=== PATIENT | female | born 1975 | race Caucasian/White ===

== ENCOUNTER → 2020-05-10 | Outpatient (CLI) | payer OTHER ==
[2020-05-10 08:19] LABS: Basophils # (A) 0.1 k/uL (0-0.2); Basophils % (A) 1 %; Eosinophils # (A) 0.1 k/uL (0-0.7); Eosinophils % (A) 2 %; HCT 43.2 % (34.0-46.0); HGB 14.1 gm/dL (11.4-16.0); Lymphocytes # (A) 1.4 k/uL (1.0-4.8); Lymphocytes % (A) 18 %; MCH 29.1 pg (25.0-35.0); MCHC 32.7 g/dL (31.0-37.0); MCV 89.1 fL (80.0-100.0); Mean Platelet Volume 7.1; Monocytes # (A) 0.5 k/uL (0-1.0); Monocytes % (A) 6 %; Neutrophils # (A) 5.8 k/uL (1.3-7.7); Neutrophils % (A) 73 %; Platelet Count 274 k/uL (150-450); RBC 4.85 m/uL (3.80-5.40); RDW 12.7 % (11.5-15.5); WBC 7.9 k/uL (3.8-10.6)
== END | disposition home or self-care (01) ==
LOC: LABPAT 07:32
PROVIDERS: ATTEND Obstetrics & Gynecology Obstetrics
DX: Z01.818 Encounter for other preprocedural examination (principal); N92.0 Excessive and frequent menstruation with regular cycle
CPT/HCPCS: 36415; 85025

== ENCOUNTER 2020-05-13 08:29 | Day surgery (SDC) | payer OTHER ==
--- NOTE | 2020-05-09 14:41 | HP ---
HISTORY AND PHYSICAL DATE OF SURGERY: 05/13/2020 HISTORY OF PRESENT ILLNESS: This is a 44-year-old 3, para 2-0-1-2 with complaints of irregular menstrual cycle. She states her menses typically are every 28-30 days with a heavy flow. She states for the last month she has been bleeding irregularly in nature. Patient is sexually active but not currently in contraception. Patient did undergo an endometrial biopsy, which was normal in nature. The patient states she would like to proceed with endometrial ablation given she is a current smoker and has noted headaches that have increase in nature. The patient has had extended bleeding pattern since the end of summer in February. PAST MEDICAL HISTORY: Significant for asthma and a kidney infection. PAST SURGICAL HISTORY: Significant for a cholecystectomy and hernia repair. Se is on Aygestin 5 mg. ALLERGIES: She is allergic to BACTRIM and ERYTHROMYCIN. FAMILY HISTORY: Noncontributory to this problem. 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 The patient has noted an extended bleeding pattern since February and is considering endometrial ablation. SOCIAL HISTORY: She is a current half pack per day smoker. 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 She notes minimal alcohol use, but denies drug use. REVIEW OF SYSTEMS: She denies fatigue, fever, chills. She denies diarrhea, constipation, or abdominal pain. She does note irregular menses and menorrhagia. She denies urinary urgency, dysuria, or incontinence. PHYSICAL EXAM: Vital signs are essentially stable. In general, is a well-nourished, well-developed, non female in no acute distress, breathing is noted to be nonlabored, heart has a regular rate and rhythm. Abdomen is soft and nontender, on genitourinary exam, external genitalia is noted to be normal for age. Vaginal mucosa is noted to be pink and well rugated. The cervix seems to be nontender without lesions. Uterus to be mobile. No adnexal masses are appreciated. ASSESSMENT: Irregular menses and menorrhagia. Information is reviewed with the patient regarding endometrial ablation for which she would like to proceed. PLAN: Hysteroscopy, dilation and curettage with endometrial ablation, NovaSure. Surgery is reviewed and all questions were answered. Risks are reviewed with the patient including uterine perforation, hematometra or failure of the procedure, the patient states understanding of these risks and wishes to proceed. MMODL / IJN: [id number] /
[~2020-05-13 08:29] MED LIST: Pre Op ABX Message 1 EACH MISC MISCELLANE ONE
[2020-05-13] MEDS ORDERED: ONDANSETRON 4 MG/2 ML VIAL ONE (08:59)
[2020-05-13] MEDS ORDERED: ONDANSETRON 4 MG/2 ML VIAL IVP ONE (09:22)
[2020-05-13] MEDS ORDERED: DEXAMETHASONE SOD PHOSPHATE 4 MG/ML 1 ML VIAL IV ONE (09:22)
[2020-05-13] MEDS ORDERED: HYDROmorphone 0.5 MG/0.5 ML SYRINGE IVP PRN (09:22)
[2020-05-13] MEDS ORDERED: SCOPOLAMINE 1.5MG/72HR PATCH TRANSDERM ONE (09:22)
[2020-05-13] MEDS ORDERED: LACTATED RINGERS 1,000 ML IV SCH (09:22)
[2020-05-13] MEDS ORDERED: LIDOCAINE 1% (10MG/ML) FOR IV START INTRADERMA PRN (09:22)
[2020-05-13] MEDS ORDERED: MIDAZOLAM 2 MG/2 ML VIAL ONE (09:58)
[2020-05-13] MEDS ORDERED: LIDOCAINE 1% INJ 10MG/ML (20 ML MDV) ONE (09:58)
[2020-05-13] MEDS ORDERED: fentaNYL (PF) 50 MCG/ML 2 ML AMP ONE (09:58)
[2020-05-13] MEDS ORDERED: PROPOFOL 10 MG/ML 20 ML VIAL IV ONE (09:58)
[2020-05-13] MEDS ORDERED: KETOROLAC 15 MG/ML 1 ML VIAL ONE (09:58)
--- NOTE | 2020-05-13 10:19 | P.OP ---
Date of Procedure: 05/13/20 Preoperative Diagnosis: Menorrhagia Postoperative Diagnosis: Same Procedure(s) Performed: Hysteroscopy, dilation and curettage, endometrial ablation with NovaSure Anesthesia: MAC Surgeon: Verenice Orellana Estimated Blood Loss (ml): 5 IV fluids (ml): 600 Urine output (ml): 50 Pathology: other (Endometrial curettings) Condition: stable Disposition: PACU Indications for Procedure: Heavy menstrual bleeding Operative Findings: Delivered of endometrial cavity Description of Procedure: Patient was seen in the preoperative area procedure was reviewed and all questions are answered. Patient agreed and was taken back to the operating suite. General anesthesia was then obtained without difficulty by the anesthesia department. She was then prepped and draped in the normal sterile fashion in the dorsal lithotomy position. A red rubber catheter was then used to drain the bladder of clear yellow urine. A weighted speculum was placed in the posterior vaginal vault the anterior lip of the cervix was visualized and grasped with a single-tooth tenaculum. The endocervical canal was then dilated to 15-Mauritian. Hysteroscope was then placed through the cervix and toward the and Perri cavity with the above-noted findings. Hysteroscope was removed after pictures were taken. A sharp curettage was then performed and this specimen was then sent to pathology for analysis. The NovaSure device was then opened and set to the appropriate measurements a length of 4 with a 4.2 a power of 92 total cycle length of 2 minutes. Cycle was allowed to occur after the cavity assessment was passed. After the cycle was complete the device was removed without difficulty. The single-tooth tenaculum was taken off of the anterior lip of the cervix hemostasis was appreciated. All instrument were then removed from the patient's vaginal vault. All counts were noted to be correct 2. Patient was taken the recovery room awake in stable condition.
[2020-05-13 10:32] VITALS: TEMP 97.2
[2020-05-13 10:51] VITALS: RESP 16
[2020-05-13] MEDS ORDERED: LACTATED RINGERS 1,000 ML IV ONE (11:00)
[2020-05-13 11:28] VITALS: BP 138/90; PULSE 51
== END 2020-05-13 11:44 | disposition home or self-care (01) ==
LOC: OR 08:29
PROVIDERS: ATTEND Obstetrics & Gynecology Obstetrics
DX: N92.1 Excessive and frequent menstruation with irregular cycle (principal); N85.8 Other specified noninflammatory disorders of uterus; J45.909 Unspecified asthma, uncomplicated; Z90.49 Acquired absence of other specified parts of digestive tract; Z98.890 Other specified postprocedural states; Z79.899 Other long term (current) drug therapy; Z88.2 Allergy status to sulfonamides; Z88.1 Allergy status to other antibiotic agents; F17.210 Nicotine dependence, cigarettes, uncomplicated
CPT/HCPCS: 81025; 88305; 58563; J2250; J1100; J2405; J2001; J3010; J1885; J2704

== ENCOUNTER → 2022-12-17 | Outpatient (CLI) | payer OTHER ==
[2022-12-17 15:55] LABS: ALT 22 U/L (8-44); AST 22 U/L (13-35); Albumin 4.7 d/dL (3.8-4.9); Albumin/Globulin Ratio 2.24 Ratio (1.60-3.17); Alkaline Phosphatase 67 U/L (41-126); BUN/Creat Ratio 15.11 Ratio (12.00-20.00); Blood Urea Nitrogen 13.6 mg/dL (9.0-27.0); Calcium 9.7 mg/dL (8.7-10.3); Carbon Dioxide 21.2 mmol/L (21.6-31.8); Chloride 106 mmol/L (96-109); Globulin 2.1 d/dL (1.6-3.3); Glucose 91 mg/dL (70-110); Potassium 4.2 mmol/L (3.5-5.5); Sodium 139 mmol/L (135-145); Total Bilirubin 0.4 mg/dL (0.3-1.2); Total Protein 6.8 d/dL (6.2-8.2)
[2022-12-17 20:12] LABS: Basophils # (A) 0.03 X 10*3/uL (0.00-0.10); Basophils % (A) 0.4 %; Eosinophils % (A) 1.3 %; HCT 39.2 % (37.2-46.3); Lymphocytes # (A) 1.58 X 10*3/uL (0.90-5.00); Lymphocytes % (A) 20.8 %; MCH 32.1 pg (27.0-32.0); MCHC 35.7 d/dL (32.0-37.0); MCV 89.9 FL (80.0-97.0); Mean Platelet Volume 10.9 FL (9.5-12.2); Monocytes # (A) 0.41 X 10*3/uL (0.20-1.00); Monocytes % (A) 5.4 %; NRBC Per 100 WBC 0 X 10*3/uL (0.00-0.01); Neutrophils # (A) 5.44 X 10*3/uL (1.80-7.70); Neutrophils % (A) 71.8 %; Platelet Count 326 X 10*3/uL (140-440); RBC 4.36 X 10*6/uL (4.10-5.20); RDW 13.1 % (11.5-14.5); WBC 7.58 X 10*3/uL (4.50-10.00)
== END | disposition home or self-care (01) ==
LOC: LABWHC1 11:17
PROVIDERS: ATTEND Physician Assistant
DX: B35.9 Dermatophytosis, unspecified (principal)
CPT/HCPCS: 36415; 80053; 85025

== ENCOUNTER → 2023-10-13 | Outpatient (CLI) | payer OTHER ==
--- NOTE | 2023-10-13 08:48 | MM ---
Reason for Exam: Clinical finding. Indicated Problems: Lump or thickening of the left side for 4 Day(s). Patient History: Menarche at age 9. First Full-Term at age 20. Risk Values: Yashira 5 year model risk: 0.9%. NCI Lifetime model risk: 8.9%. Tissue Density: The breasts are heterogeneously dense, which may obscure small masses. Findings: Analyzed By CAD. The pattern is symmetrical. There are calcifications which may be vascular in nature in the posterior lateral breast. This is posterior to the palpable region. Please see ultrasound report. Consideration for calcification biopsy can be performed based on the ultrasound biopsy results. At the area marked by the palpable abnormality no discrete mammographic abnormality is evident. No suspicious groups of microcalcifications, spiculated or lobular masses, architectural distortion or other secondary signs of malignancy are mammographically apparent. Overall Assessment: Incomplete: need additional imaging evaluation, BI-RAD 0 Management: Diagnostic Breast Ultrasound of the left breast. A negative mammogram report should not preclude additional follow up of suspicious palpable abnormalities. Patient should continue monthly self breast exam. A clinical breast exam by your physician is recommended on an annual basis and results should be correlated with mammographic findings. Electronically signed and approved by: Andrew Grullon D.O. Radiologis
--- NOTE | 2023-10-13 08:49 | USB ---
Patient History: Menarche at age 9. First Full-Term at age 20. Risk Values: Yashira 5 year model risk: 0.9%. NCI Lifetime model risk: 8.9%. Technique: Method: Targeted. Doppler: Color. Patient Position: Supine. Findings: The area of palpable concern of the left breast, the axilla of the left breast and the retroareolar of the left breast were scanned. At the area of concern there is a vague hypoechoic area which is irregular and appears taller than wide. This area is persistent and is estimated to measure 1.2 x 1.0 cm. Ultrasound-guided core biopsy is recommended. Following the ultrasound-guided biopsy, correlation with mammogram is recommended. If biopsy marker is away from the calcifications, evaluation of the calcifications for potential biopsy would be recommended. Overall Assessment: Suspicious, BI-RAD 4 Management: Ultrasound Core Biopsy of the left breast. A clinical breast exam by your physician is recommended on an annual basis and results should be correlated with mammographic findings. This exam should not preclude additional follow-up of suspicious palpable abnormalities. Results were given to the patient verbally at the time of exam. Electronically signed and approved by: Andrew Grullon D.O. Radiologis
[2023-10-13 15:42] LABS: Rheumatoid Factor, Qnt <15 IU/mL (0-15)
== END | disposition home or self-care (01) ==
LOC: RADMAMWWP 07:27
PROVIDERS: ATTEND Family Medicine
DX: R92.333 Mammographic heterogeneous density, bilateral breasts (principal); R53.83 Other fatigue; Z13.1 Encounter for screening for diabetes mellitus; Z13.220 Encounter for screening for lipoid disorders; N63.20 Unspecified lump in the left breast, unspecified quadrant; M25.50 Pain in unspecified joint
CPT/HCPCS: 36415; 77062; 77066; 85652; 86038; 86140; 86431

== ENCOUNTER → 2023-10-18 | Day surgery (SDC) | payer OTHER ==
--- NOTE | 2023-10-22 11:32 | MM ---
Reason for Exam: Post Procedure Mammogram. Patient History: Menarche at age 9. First Full-Term at age 20. Risk Values: Yashira 5 year model risk: 0.9%. NCI Lifetime model risk: 8.9%. Prior Study Comparison: 10/13/2023 Bilateral MG 3D diag mammo w/cad [facility], [facility]. Tissue Density: Left: The breasts are heterogeneously dense, which may obscure small masses. Pathology Description: Location: 5 o'clock, lower outer quadrant. Marker Left Behind. Needle Type: Celero Cores: 4 Gauge: 12 The procedure of ultrasound guided core biopsy was explained to the patient. Benefits, alternatives, and risks were discussed. An informed consent was then obtained. The patient was placed in supine positioning for imaging and for the procedure. The overlying skin was prepped and draped in usual sterile fashion. Lidocaine buffered with bicarbonate was used as anesthetic into the skin and subcutaneous tissue up to area of concern in the left 5:00 breast. Under ultrasound guidance, a 12-gauge vacuum assisted biopsy gun device was used to obtain 4 core samples. Following this, a biopsy clip was left in lesion. The patient tolerated the procedure well without any immediate complication. The patient was kept in the radiology department for short stay after the procedure and then discharged home in stable condition. Postprocedure mammogram: The patient was transferred to mammography for physician ordered post procedure mammogram for clip placement verification. Impression: Successful, uncomplicated ultrasound guided core biopsy of area of concern in the left 5:00 breast, full pathology results to follow. Pathology Results: Result: Malignant, Invasive ductal carcinoma. Pathology and radiology were reviewed. Findings are concordant. 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 See surgical pathology cancer case summary and comment. Overall Assessment: Malignant Assessment: MG diagnostic mammo LT wo CAD. - Left: Known biopsy proven malignancy, BI-RAD 6. Management: Surgical Consultation of the left breast. Electronically signed and approved by: Laureano Valencia M.D. Radiologis
== END ==
LOC: RADUSWWP 10:08
PROVIDERS: ATTEND Family Medicine
DX: D05.12 Intraductal carcinoma in situ of left breast (principal)
CPT/HCPCS: 88305; 88342; 88341; 77065; 19083; A4648

== ENCOUNTER → 2023-10-29 | Outpatient (CLI) | payer OTHER ==
--- NOTE | 2023-11-01 08:33 | BMR ---
EXAM DATE: 10/29/2023 EXAM DESCRIPTION: MRI-Breast Bilat (W/WO Contrast) INDICATION: Recently diagnosed left breast cancer, to evaluate extent of disease COMPARISON: Comparison was made to prior relevant imaging available in PACS TECHNIQUE: Multiplanar multisequence breast MRI was performed prior to and after administration of 9 mL of Gadavist intravenously. Post processing was performed utilizing a [employer] workstation. Breast MRI was performed at [facility] and was provided for review by [facility]. FINDINGS: There is moderate, symmetric background parenchymal enhancement in breasts that are composed of heterogeneous fibroglandular tissue. RIGHT BREAST: Review of the dynamic contrast enhanced series shows no rapidly enhancing masses, suspicious enhancement pattern or other abnormalities. The T2 weighted series show no abnormality. LEFT BREAST: Review of the dynamic contrast enhanced series demonstrates focal non mass enhancement at 5 o'clock position posterior depth of the breast compatible with biopsy-proven malignancy. Area of enhancement measures grossly 3.1 x 1.2 x 1.2 cm (AP x transverse x CC dimension) (series 504, image 263 and series 601, image 42). The signal void from biopsy clip is abutting the inner aspect of the enhancing malignancy (series 504, image 275). No additional sites of suspicious enhancement or other abnormality in the left breast. Nonenlarged however slightly prominent lymph node high in the left axilla with mild cortical fullness (series 504, image 671 and series 601, image 38). IMPRESSION: Right Breast: BI-RADS Category 1-negative. No MRI evidence of malignancy. Recommendation: MRI screening in 1 year Left Breast: BI-RADS Category 0-[id number] malignancy. A 2.7 x 1.1 x 1.2 cm focal non mass enhancement at 5 o'clock position posterior depth of the breast compatible with biopsy-proven malignancy with biopsy clip abutting the inner aspect of abnormality. Recommendation: Surgical and oncological consultation. Nonenlarged, however slightly prominent and asymmetric, lymph node with mild cortical fullness in the high left axilla, indeterminate. Recommendation: Further evaluation with targeted ultrasound if clinically relevant. OVERALL ASSESSMENT- BI-RADS 6 MTDD
== END | disposition home or self-care (01) ==
LOC: RADMRIMAIN 07:54
PROVIDERS: ATTEND Internal Medicine Hematology & Oncology
DX: C50.512 Malignant neoplasm of lower-outer quadrant of left female breast (principal)
CPT/HCPCS: 77049

== ENCOUNTER → 2023-11-02 | Outpatient (CLI) | payer OTHER ==
--- NOTE | 2023-11-04 09:35 | US ---
EXAMINATION TYPE: US pelvic complete DATE OF EXAM: 11/02/2023 COMPARISON: NONE CLINICAL INDICATION: Female, 47 years old with history of R19.4 CHANGE IN BOWEL HABIT; change in talha l habits. Pt states pain on the left side for years. Pt had hernia surgery 20+ years ago with zara hou TECHNIQUE: Transabdominal sonographic images of the pelvis were acquired. Date of LMP: Unknown. Pt had ablation around 4 years ago EXAM MEASUREMENTS: Uterus: 8.5 x 5.9 x 4.2 cm Endometrial Stripe: 0.59 cm Right Ovary: 3.8 x 2.3 x 2.2 cm Left Ovary: 3.2 x 2.4 x 1.5 cm 1. Uterus: Anteverted wnl 2. Endometrium: wnl 3. Right Ovary: wnl 4. Left Ovary: Follicle seen measuring 1cm 5. Bilateral Adnexa: Echogenic area with posterior shadowing seen in the left adnexa. Possibly repre senting the titanium mesh used for hernia surgery? 6. Posterior cul-de-sac: wnl IMPRESSION: No significant abnormality of the uterus or adnexa. No free fluid in the cul-de-sac.
== END | disposition home or self-care (01) ==
LOC: RADUSWWP 16:06
PROVIDERS: ATTEND Family Medicine
DX: R19.4 Change in bowel habit (principal); R10.9 Unspecified abdominal pain; Z98.890 Other specified postprocedural states
CPT/HCPCS: 76856

== ENCOUNTER → 2023-11-03 | Outpatient (CLI) | payer OTHER ==
[2023-11-03 10:39] LABS: Basophils # (A) 0.04 X 10*3/uL (0.00-0.10); Basophils % (A) 0.6 %; Eosinophils % (A) 1.6 %; HGB 14.2 g/dL (12.0-15.0); Lymphocytes # (A) 1.43 X 10*3/uL (0.90-5.00); Lymphocytes % (A) 22.2 %; MCH 31.1 pg (27.0-32.0); MCHC 34.6 g/dL (32.0-37.0); MCV 89.9 FL (80.0-97.0); Mean Platelet Volume 10.8 FL (9.5-12.2); Monocytes # (A) 0.38 X 10*3/uL (0.20-1.00); Monocytes % (A) 5.9 %; NRBC Per 100 WBC 0 X 10*3/uL (0.00-0.01); Neutrophils # (A) 4.46 X 10*3/uL (1.80-7.70); Neutrophils % (A) 69.4 %; Platelet Count 305 X 10*3/uL (140-440); RBC 4.56 X 10*6/uL (4.10-5.20); RDW 12.9 % (11.5-14.5); WBC 6.43 X 10*3/uL (4.50-10.00)
[2023-11-03 11:07] LABS: ALT 21 U/L (8-44); AST 17 U/L (13-35); Albumin 4.8 g/dL (3.8-4.9); Alkaline Phosphatase 57 U/L (41-126); Blood Urea Nitrogen 12.7 mg/dL (9.0-27.0); Calcium 9.5 mg/dL (8.7-10.3); Carbon Dioxide 24.6 mmol/L (21.6-31.8); Chloride 105 mmol/L (96-109); Glucose 100 mg/dL (70-110); LDL Cholesterol,Calculated 97.2 mg/dL (0.0-131.0); Potassium 4.3 mmol/L (3.5-5.5); Sodium 141 mmol/L (135-145); Total Bilirubin 0.3 mg/dL (0.3-1.2); Total Protein 6.8 g/dL (6.2-8.2)
== END | disposition home or self-care (01) ==
LOC: LABWHC1 06:55
PROVIDERS: ATTEND Family Medicine
DX: Z13.220 Encounter for screening for lipoid disorders (principal); Z13.1 Encounter for screening for diabetes mellitus; R53.83 Other fatigue
CPT/HCPCS: 36415; 80053; 80061; 83036; 84443; 85025

== ENCOUNTER → 2023-11-10 | Outpatient (CLI) | payer OTHER ==
--- NOTE | 2023-11-12 07:28 | USB ---
Reason for Exam: Follow-up at short interval from prior study. Patient History: Menarche at age 9. First Full-Term at age 20. Breast cancer, left, age 47. 10/18/2023, Malignant US biopsy breast VAD LT on the left side. Technique: Method: Targeted. Prior Study Comparison: 10/13/2023 Bilateral MG 3D diag mammo w/cad [facility], [facility]. 10/18/2023 Left MG diagnostic mammo LT wo CAD., [facility]. Findings: The axilla of the left breast was scanned. Technique utilized:US breast axilla LT Image; Ultrasound imaging of: All 4 quadrants, the retroareolar region and axilla. The visualized lymph node appears to be grossly similar to 10/13/2023. When comparing to MRI imaging for 10/29/2023, the lymph nodes in the right axilla are not that different than the contralateral side in morphology. Surgical consultation for management of lymph nodes mentioned on MRI imaging. No definitive suspicious lymph node identified on ultrasound imaging. Overall Assessment: Probably benign, BI-RAD 3 Management: Diagnostic Breast Ultrasound of the right breast in 3 months. A clinical breast exam by your physician is recommended on an annual basis and results should be correlated with mammographic findings. This exam should not preclude additional follow-up of suspicious palpable abnormalities. Results were given to the patient verbally at the time of exam. Electronically signed and approved by: Quinten Webb DO
== END | disposition home or self-care (01) ==
LOC: RADUSWWP 14:59
PROVIDERS: ATTEND Internal Medicine Hematology & Oncology
DX: C50.512 Malignant neoplasm of lower-outer quadrant of left female breast (principal); Z17.0 Estrogen receptor positive status [ER+]

== ENCOUNTER 2024-01-29 20:07 | Inpatient (IN) | payer OTHER ==
--- NOTE | 2024-01-29 20:48 | ED ---
General Adult HPI - General Chief complaint: Fever Stated complaint: post-chemo fever, rash Time Seen by Provider: 01/29/24 20:24 Source: patient, RN notes reviewed Mode of arrival: ambulatory Limitations: no limitations - History of Present Illness Initial comments: Patient is a 48-year-old female presenting to the emergency department with concern for fever. Patient is on chemotherapy, last 10 days ago for breast cancer. Patient experienced some sort of bug bite to her left leg 3 to 4 days ago. Patient is having redness that has expanded however not as deeply red. Patient noticed fever today. Patient does have discomfort that is increasing of her left calf where the rash is - Related Data Home Medications Medication Instructions Recorded Confirmed Loratadine [Claritin] 1 tab PO DIRECTED 12/08/23 01/19/24 Ondansetron [Zofran] 1 tab PO QID PRN 12/08/23 01/19/24 dexAMETHasone [Decadron] 8 mg PO BID 12/08/23 01/19/24 Allergies Allergy/AdvReac Type Severity Reaction Status Date / Time azithromycin [From Zithromax] Allergy Rash/Hives Verified 01/29/24 20:26 sulfamethoxazole Allergy Rash/Hives Verified 01/29/24 20:26 [From Bactrim] trimethoprim [From Bactrim] Allergy Rash/Hives Verified 01/29/24 20:26 PINE Allergy Unknown Uncoded 01/29/24 20:26 Review of Systems ROS Statement: Those systems with pertinent positive or pertinent negative responses have been documented in the HPI. ROS Other: All systems not noted in ROS Statement are negative. Constitutional: Reports: fever Eyes: Denies: eye pain ENT: Denies: ear pain Respiratory: Denies: cough Cardiovascular: Denies: chest pain Endocrine: Denies: fatigue Gastrointestinal: Denies: abdominal pain Skin: Reports: rash Past Medical History Past Medical History: No Reported History Additional Past Medical History / Comment(s): breast cx History of Any Multi-Drug Resistant Organisms: None Reported Past Surgical History: Cholecystectomy, Hernia Repair Additional Past Surgical History / Comment(s): back Skin biopsy, benign Past Anesthesia/Blood Transfusion Reactions: No Reported Reaction Past Psychological History: No Psychological Hx Reported Smoking Status: Former smoker, Vaper Past Alcohol Use History: Rare Past Drug Use History: None Reported - Past Family History Mother Family Medical History: Congestive Heart Failure (CHF), COPD Additional Family Medical History / Comment(s): ARTHRITIS Father Family Medical History: Cancer, Hypertension Additional Family Medical History / Comment(s): PROSTATE General Exam Limitations: no limitations General appearance: alert, in no apparent distress Head exam: Present: normocephalic Eye exam: Present: normal appearance Neck exam: Present: normal inspection Respiratory exam: Present: normal lung sounds bilaterally Cardiovascular Exam: Present: tachycardia GI/Abdominal exam: Present: soft. Absent: tenderness Extremities exam: Present: other (Erythema left calf) Neurological exam: Present: alert Psychiatric exam: Present: normal affect, normal mood Skin exam: Present: rash (Left calf with approximately 8 cm circular bull's-eye type rash with several small punctures in the middle) Course Vital Signs 01/29/24 20:19 Temperature 100.2 F H Pulse Rate 109 H Respiratory 20 Rate Blood Pressure 118/82 O2 Sat by Pulse 98 Oximetry Medical Decision Making - Medical Decision Making Was pt. sent in by a medical professional or institution (, PA, COMPUTER OPERATIONS MANAGER, urgent care, hospital, or jail...) When possible be specific @ -No Did you speak to anyone other than the patient for history (EMS, parent, family, police, friend...)? What history was obtained from this source @ -No Did you review nursing and triage notes (agree or disagree)? Why? @ -I reviewed and agree with nursing and triage notes Were old charts reviewed (outside hosp., previous admission, EMS record, old EKG, old radiological studies, urgent care reports/EKG's, jail records)? Report findings @ -No old charts were reviewed Differential Diagnosis (chest pain, altered mental status, abdominal pain women, abdominal pain men, vaginal bleeding, weakness, fever, dyspnea, syncope, headache, dizziness, GI bleed, back pain, seizure, CVA, palpatations, mental health, musculoskeletal)? @ -Differential Fever: Pneumonia, viral URI, endocarditis, myocarditis, pericarditis, otitis, sinusitis, peritonsillar Abscess, retropharyngeal Abscess, epiglottitis, peritonitis, appendicitis, Maria M cystitis, diverticulitis, hepatitis, colitis, UTI, PID, TOA, pyelonephritis, prostatitis, epididymitis, meningitis, encephalitis, pulmonary embolism, CVA, thyroid storm, pancreatitis, adrenal crisis, cavernous sinus thrombosis, this is not meant to be an all-inclusive list. EKG interpreted by me (3pts min.). @ -As above X-rays interpreted by me (1pt min.). @ -None done CT interpreted by me (1pt min.). @ -None done U/S interpreted by me (1pt. min.). @ -None done What testing was considered but not performed or refused? (CT, X-rays, U/S, labs)? Why? @ -None What meds were considered but not given or refused? Why? @ -None Did you discuss the management of the patient with other professionals (professionals i.e. DrLily, PA, COMPUTER OPERATIONS MANAGER, lab, RT, psych nurse, social media editor, crib tender, teacher, correction officer, onsite case manager)? Give summary @ -Case discussed with Dr. Watt will consult for oncology. Case also discussed with Dr. Jacobo who will admit covering Dr. Adams. Was smoking cessation discussed for >3mins.? @ -No Was critical care preformed (if so, how long)? @ -32 minutes critical care time Were there social determinants of health that impacted care today? How? (Homelessness, low income, unemployed, alcoholism, drug addiction, transportation, low edu. Level, literacy, decrease access to med. care, senior living, rehab)? @ -No Was there de-escalation of care discussed even if they declined (Discuss DNR or withdrawal of care, Hospice)? DNR status @ -No What co-morbidities impacted this encounter? (DM, HTN, Smoking, COPD, CAD, Cancer, CVA, ARF, Chemo, Hep., AIDS, mental health diagnosis, sleep apnea, morbid obesity)? @ -Breast cancer on chemotherapy Was patient admitted / discharged? Hospital course, mention meds given and route, prescriptions, significant lab abnormalities, going to OR and other pertinent info. @ -Patient presents with cellulitis of the left leg and fever. Elevation of white blood cell count and patient on chemotherapy. Patient will be admitted for IV antibiotics. Admission orders written. There is concern for sepsis diagnosed at 2300. Blood culture lactic acid and IV antibiotics have all been ordered. Undiagnosed new problem with uncertain prognosis? @ -No Drug Therapy requiring intensive monitoring for toxicity (Heparin, Nitro, Insulin, Cardizem)? @ -No Were any procedures done? @ -No Diagnosis/symptom? @ -Cellulitis, sepsis Acute, or Chronic, or Acute on Chronic? @ -Acute, acute Uncomplicated (without systemic symptoms) or Complicated (systemic symptoms)? @ -Complicated with underlying history of breast cancer and on chemotherapy Side effects of treatment? @ -No Exacerbation, Progression, or Severe Exacerbation? @ -No Poses a threat to life or bodily function? How? (Chest pain, [place], [place], pneumonia, PE, COPD, DKA, ARF, appy, cholecystitis, CVA, Diverticulitis, Homicidal, Suicidal, threat to staff... and all critical care pts) @ -No - Lab Data Result diagrams: 01/29/24 21:48 01/29/24 21:48 Lab Results 01/29/24 01/29/24 01/29/24 Range/Units 21:48 21:48 21:48 WBC 24.3 H (3.8-10.6) k/uL RBC 3.87 (3.80-5.40) m/uL Hgb 11.3 L (11.4-16.0) gm/dL Hct 33.8 L (34.0-46.0) % MCV 87.3 (80.0-100.0) fL MCH 29.3 (25.0-35.0) pg MCHC 33.5 (31.0-37.0) g/dL RDW 15.5 (11.5-15.5) % Plt Count 243 (150-450) k/uL MPV 7.5 Sodium 136 L (137-145) mmol/L Potassium 3.7 (3.5-5.1) mmol/L Chloride 109 H (98-107) mmol/L Carbon Dioxide 21 L (22-30) mmol/L Anion Gap 6 mmol/L BUN 11 (7-17) mg/dL Creatinine 0.97 (0.52-1.04) mg/dL Est GFR (CKD-EPI)AfAm 79 (>60 ml/min/1.73 sqM) Est GFR (CKD-EPI)NonAf 69 (>60 ml/min/1.73 sqM) Glucose 116 H (74-99) mg/dL Plasma Lactic Acid Gage 1.1 (0.7-2.0) mmol/L Calcium 8.9 (8.4-10.2) mg/dL Total Bilirubin 0.5 (0.2-1.3) mg/dL AST 31 (14-36) U/L ALT 32 (4-34) U/L Alkaline Phosphatase 107 (38-126) U/L Total Protein 5.8 L (6.3-8.2) g/dL Albumin 3.9 (3.5-5.0) g/dL Critical Care Time Critical Care Time: Yes Total Critical Care Time: 32 Disposition Clinical Impression: Cellulitis, Sepsis Disposition: ADMITTED IP TO THIS [facility] Condition: Serious Is patient prescribed a controlled substance at d/c from ED?: No Referrals: Ted Adams MD [Primary Care Provider] - 1-2 days Time of Disposition: 23:11
[2024-01-29 21:58] LABS: HCT 33.8 % (34.0-46.0); HGB 11.3 gm/dL (11.4-16.0); MCH 29.3 pg (25.0-35.0); MCHC 33.5 g/dL (31.0-37.0); MCV 87.3 fL (80.0-100.0); Mean Platelet Volume 7.5; Platelet Count 243 k/uL (150-450); RBC 3.87 m/uL (3.80-5.40); RDW 15.5 % (11.5-15.5)
[2024-01-29 22:09] LABS: ALT 32 U/L (4-34); AST 31 U/L (14-36); African American GFR (CKD) 79 (>60 ml/min/1.73 sqM); Albumin 3.9 g/dL (3.5-5.0); Alkaline Phosphatase 107 U/L (38-126); Anion Gap 6 mmol/L; Blood Urea Nitrogen 11 mg/dL (7-17); Calcium 8.9 mg/dL (8.4-10.2); Carbon Dioxide 21 mmol/L (22-30); Chloride 109 mmol/L (98-107); Glucose 116 mg/dL (74-99); Non-African American GFR(CKD) 69 (>60 ml/min/1.73 sqM); Potassium 3.7 mmol/L (3.5-5.1); Sodium 136 mmol/L (137-145); Total Bilirubin 0.5 mg/dL (0.2-1.3); Total Protein 5.8 g/dL (6.3-8.2)
[2024-01-29] MEDS ORDERED: NALOXONE 0.4 MG/ML 1 ML VIAL IV PRN (23:11)
[2024-01-29 23:50] LABS: Anisocytosis (M) Present; Band Neutrophils % 10 %; Lymphocytes # (M) 0.95 k/uL (1.0-4.8); Metamyelocytes # (M) 0.24 k/uL (0); Metamyelocytes % 1 %; Monocytes # (M) 0.71 k/uL (0-1.0); Neutrophils % (M) 83 %; Nucleated Red Blood Cells 2 /100 WBC (0-0); Total Cells Counted 200; WBC 23.8 k/uL (3.8-10.6)
[2024-01-29 23:51] LABS: Polychromasia Present
[2024-01-30] MEDS: SODIUM CHLORIDE 0.9% 1,000 ML IV SCH ×2 (00:14→00:15)
[2024-01-30] MEDS: LEVOFLOXACIN 750MG-D5W PMX 750 MG in DEXTROSE/WATER 1 150ML.BAG IVPB SCH (00:14)
[2024-01-30] MEDS: ACETAMINOPHEN TAB 500 MG TAB PO STA (00:24)
[2024-01-30] MEDS ORDERED: VANCOMYCIN IV PER PHARMACY 1 EACH MISC MISCELLANE PRN (00:41)
--- NOTE | 2024-01-30 00:43 | P.HPIM ---
History of Present Illness H&P Date: 01/30/24 Chief Complaint: fever 48-year-old female with recent diagnosis of breast cancer currently on chemotherapy last round was received about 10 days ago Patient coming in due to a fever she reports that she felt an insect bite couple days ago and her left leg she did not see the insect bite she felt that she killed it immediately by hitting the bug over the pants that she was wearing when she saw the crustacean. She noticed that she started having some central erythema with peripheral clearing. Today she noticed some swelling associated with that and induration denies any bleeding denies any open wounds. She also started having a fever today for which she decided to come in for evaluation Denies any nausea or vomiting denies any abdominal pain denies any cough or upper respiratory infection symptoms. Denies any GI bleeding. She does admit to 2 episodes of diarrhea. She denies any recent travel or hospital stay denies any recent hiking in the [place] or camping. She denies seeing any ticks. Denies any joint pain denies any changes in her urinary habits. Denies any vision changes. Patient was recently diagnosed with breast cancer the lump was first noted around September of this year she has been on chemotherapy she has received 3 rounds so far no surgery has been done yet. review of systems Pertinent positives as noted in HPI. All other systems were reviewed and are negative on exam Constitutional: No acute distress, conversant, pleasant Eyes: Anicteric sclerae, moist conjunctiva, Pupils equal round reactive to light Lungs: Clear to auscultation Clear to percussion Normal respiratory effort, no accessory muscle use Cardiovascular: Heart regular in rate and rhythm, No murmurs, gallops, or rubs No peripheral edema Abdominal: Soft Nontender, no guarding, rebound or rigidity Abdomen moving with respiration Normoactive bowel sounds Skin: There is erythema over the proximal ventral aspect of the left calf with peripheral clearing and then arrange of her erythema resulting in a target looking erythema. No tenderness to palpation slightly warm to the touch no open wounds no drainage Extremities: No digital cyanosis No clubbing Pedal pulses intact and symmetrical Radial pulses intact and symmetrical No calf tenderness Psychiatric: Alert and oriented to person, place and time Appropriate affect fair judgement Neuro Muscles Strength 5/5 in all 4 extremities Sensation to light touch grossly present throughout Cranial nerves II-XII grossly intact Past Medical History Past Medical History: No Reported History Additional Past Medical History / Comment(s): breast cx History of Any Multi-Drug Resistant Organisms: None Reported Past Surgical History: Cholecystectomy, Hernia Repair Additional Past Surgical History / Comment(s): back Skin biopsy, benign Past Anesthesia/Blood Transfusion Reactions: No Reported Reaction Past Psychological History: No Psychological Hx Reported Smoking Status: Former smoker, Vaper Past Alcohol Use History: Rare Past Drug Use History: None Reported - Past Family History Mother Family Medical History: Congestive Heart Failure (CHF), COPD Additional Family Medical History / Comment(s): ARTHRITIS Father Family Medical History: Cancer, Hypertension Additional Family Medical History / Comment(s): PROSTATE Medications and Allergies Home Medications Medication Instructions Recorded Confirmed Type Loratadine [Claritin] 1 tab PO DIRECTED 12/08/23 01/19/24 History Ondansetron [Zofran] 1 tab PO QID PRN 12/08/23 01/19/24 History dexAMETHasone [Decadron] 8 mg PO BID 12/08/23 01/19/24 History Allergies Allergy/AdvReac Type Severity Reaction Status Date / Time azithromycin [From Zithromax] Allergy Rash/Hives Verified 01/29/24 20:26 sulfamethoxazole Allergy Rash/Hives Verified 01/29/24 20:26 [From Bactrim] trimethoprim [From Bactrim] Allergy Rash/Hives Verified 01/29/24 20:26 PINE Allergy Unknown Uncoded 01/29/24 20:26 Physical Exam Vitals: Vital Signs Temp Pulse Resp BP Pulse Ox 01/29/24 23:26 98.1 F 83 16 111/68 99 01/29/24 20:19 100.2 F H 109 H 20 118/82 98 Intake and Output 01/29/24 01/29/24 01/30/24 14:59 22:59 06:59 Other: Weight 83.915 kg Results CBC & Chem 7: 01/29/24 21:48 01/29/24 21:48 Labs: Abnormal Lab Results - Last 24 Hours (Table) 01/29/24 01/29/24 Range/Units 21:48 21:48 WBC 23.8 H (3.8-10.6) k/uL Hgb 11.3 L (11.4-16.0) gm/dL Hct 33.8 L (34.0-46.0) % Neutrophils # (Manual) 22.10 H (1.3-7.7) k/uL Lymphocytes # (Manual) 0.95 L (1.0-4.8) k/uL Metamyelocytes # (Man) 0.24 H (0) k/uL Nucleated RBCs 2 H (0-0) /100 WBC Sodium 136 L (137-145) mmol/L Chloride 109 H (98-107) mmol/L Carbon Dioxide 21 L (22-30) mmol/L Glucose 116 H (74-99) mg/dL Total Protein 5.8 L (6.3-8.2) g/dL Assessment and Plan Assessment: 48-year-old female with recent diagnosis of breast cancer currently on chemotherapy coming in due to a fever after few days from an insect bite to her left leg resulting in target shaped erythema I discussed the case with ED doctor and accepted the admission for sepsis secondary to cellulitis from an insect bite with anticipated length of stay more than 2 midnights Sepsis (tachycardia 102 and leukocytosis ) secondary to cellulitis of the left leg without abscess Follow-up cultures Check chest x-ray patient denying any upper respiratory symptoms however does r eport some occasional chest pain with deep breaths Check blood cultures Check Lyme antibody titers Patient was started in the ER on Levaquin to cover for atypicals, besides her allergy to penicillin and azithromycin Add vancomycin dosing by pharmacy IV fluid hydration give 1 L normal saline bolus, Continue with with normal saline continue with 130 cc/h Liver enzymes unremarkable White count 23 elevated this is multifactorial could be secondary to underlying suspected cellulitis from insect bite also patient is on white blood cell stimulation Neupogen for being on chemotherapy Continue to monitor vital signs Tylenol for fever as needed 660 mg every 4 hours as needed Pain control with Tylenol as needed, ibuprofen and tramadol 50 mg 3 times daily as needed Lactic acid unremarkable 1.1 Mild hyponatremia Sodium 136 Continue with IV fluid hydration as above Rest of the renal function overall unremarkable with potassium 3.7 carbon dioxide 21 BUN 11 creatinine 0.97 Continue to monitor renal function Mild anemia Hemoglobin 11.3 patient baseline is around 12 Most likely secondary to chemotherapy Patient denies any bleeding Continue to monitor Breast cancer Currently on chemotherapy Continue to follow-up with oncology Full code DVT prophylaxis Lovenox 40 mg subcu daily
[2024-01-30] MEDS: SODIUM CHLORIDE 0.9% 1,000 ML IV ONE (02:39)
[2024-01-30] MEDS: VANCOMYCIN 1,500 MG in SODIUM CHLORIDE 0.9% 500 ML 500 ML IVPB ONE (02:58)
[2024-01-30 04:55] LABS: HCT 34.3 % (34.0-46.0); HGB 11.2 gm/dL (11.4-16.0); MCH 29.1 pg (25.0-35.0); MCHC 32.8 g/dL (31.0-37.0); MCV 88.9 fL (80.0-100.0); Mean Platelet Volume 6.8; Platelet Count 219 k/uL (150-450); RBC 3.86 m/uL (3.80-5.40); RDW 15.6 % (11.5-15.5); WBC 19.4 k/uL (3.8-10.6)
[2024-01-30 05:33] LABS: ALT 29 U/L (4-34); AST 30 U/L (14-36); African American GFR (CKD) 88 (>60 ml/min/1.73 sqM); Albumin 3.7 g/dL (3.5-5.0); Alkaline Phosphatase 86 U/L (38-126); Anion Gap 5 mmol/L; Blood Urea Nitrogen 10 mg/dL (7-17); Carbon Dioxide 25 mmol/L (22-30); Chloride 110 mmol/L (98-107); Glucose 105 mg/dL (74-99); Non-African American GFR(CKD) 76 (>60 ml/min/1.73 sqM); Potassium 4.4 mmol/L (3.5-5.1); Sodium 140 mmol/L (137-145); Total Bilirubin 0.5 mg/dL (0.2-1.3); Total Protein 5.6 g/dL (6.3-8.2)
[2024-01-30] MEDS: ACETAMINOPHEN TAB 325 MG TAB PO PRN (06:39)
[2024-01-30] MEDS: IBUPROFEN 400 MG TAB PO PRN (06:40)
--- NOTE | 2024-01-30 06:55 | XR ---
EXAMINATION TYPE: XR chest 2V DATE OF EXAM: 01/30/2024 12:40 AM CLINICAL INDICATION:Female, 48 years old with history of occasional chest pain; [facility] COMPARISON: Chest radiographs from 03/21/2010 TECHNIQUE: XR chest 2V Frontal view of the chest. FINDINGS: Lungs/Pleura: Increased airspace opacities in the medial aspect of the right lower lobe compared to p rior. There is no evidence of pleural effusion, left focal consolidation, or pneumothorax. Pulmonary vascularity: Unremarkable. Heart/mediastinum: Cardiomediastinal silhouette is unremarkable. Musculoskeletal: No acute osseous pathology. IMPRESSION: Right lower lobe medial airspace opacities correlate for developing pneumonia.
[2024-01-30] MEDS: ENOXAPARIN 40 MG/0.4 ML SYRINGE SQ SCH (08:56)
[2024-01-30] MEDS: DOXYCYCLINE 100 MG CAP PO SCH (12:30)
--- NOTE | 2024-01-30 14:38 | P.CONS ---
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 She is currently on neoadjuvant chemotherapy with Taxotere and Cytoxan, along with PEG tube G-CSF support, with objective of downstaging to enhance efforts for breast conservation. She is status post 3 cycles, with a most recent cycle given on 01/19/24. The patient states that she felt an insect bite on her left calf about a week ago. She did not see the type of insect, she crushed it through her pant leg. She noticed some mild hyperemia, but no other symptoms at that time. There was some increased redness noted about 4 days ago when she was seen in the office. At that time the patient was feeling fatigued and had an elevated heart rate. She improved with IV hydration. She was afebrile at the time. She states that she started feeling somewhat unwell again with malaise, and some palpitations. About 2 days ago. She also noted more prominent redness, induration and tenderness on palpation in some of the areas affected, leading her to come to the ER. In the ER her white blood cell count was significantly elevated at 23.8 with predominantly neutrophils and a mild left shift. She subs equently developed fever of 102+, due to which she was admitted for further treatment. she denied any other localizing signs for infection. chest x-ray did show some opacities in the right lung, concerning for developing pneumonia Review of Systems Constitutional: Reports fever, Reports malaise Eyes: denies blurred vision, denies pain Ears: deny: decreased hearing, ear discharge, earache, tinnitus Ears, nose, mouth and throat: Denies headache, Denies sore throat Breasts: left: as per HPI Cardiovascular: Reports palpitations Respiratory: Denies cough Gastrointestinal: Reports diarrhea Genitourinary: Denies dysuria, Denies hematuria Musculoskeletal: Reports as per HPI Integumentary: Reports color changes, Reports rash Neurological: Reports weakness Psychiatric: Denies anxiety, Denies depression Endocrine: Reports fatigue Hematologic/Lymphatic: Reports as per HPI Past Medical History Past Medical History: No Reported History Additional Past Medical History / Comment(s): breast cx History of Any Multi-Drug Resistant Organisms: None Reported Past Surgical History: Cholecystectomy, Hernia Repair Additional Past Surgical History / Comment(s): back Skin biopsy, benign Past Anesthesia/Blood Transfusion Reactions: No Reported Reaction Smoking Status: Former smoker - Past Family History Mother Family Medical History: Congestive Heart Failure (CHF), COPD Additional Family Medical History / Comment(s): ARTHRITIS Father Family Medical History: Cancer, Hypertension Additional Family Medical History / Comment(s): PROSTATE Medications and Allergies Home Medications Medication Instructions Recorded Confirmed Type Loratadine [Claritin] 1 tab PO DIRECTED 12/08/23 01/30/24 History Ondansetron [Zofran] 1 tab PO QID PRN 12/08/23 01/30/24 History dexAMETHasone [Decadron] 8 mg PO DIRECTED 12/08/23 01/30/24 History ALPRAZolam [Xanax] 0.5 mg PO TID PRN 01/30/24 01/30/24 History Omeprazole 20 mg PO DAILY 01/30/24 01/30/24 History Pegfilgrastim-Apgf [Nyvepria] 6 mg SQ Q21D 01/30/24 01/30/24 History Allergies Allergy/AdvReac Type Severity Reaction Status Date / Time azithromycin [From Zithromax] Allergy Rash/Hives Verified 01/30/24 11:37 sulfamethoxazole Allergy Rash/Hives Verified 01/30/24 11:37 [From Bactrim] trimethoprim [From Bactrim] Allergy Rash/Hives Verified 01/30/24 11:37 PINE Allergy Runny nose Uncoded 01/30/24 11:37 and increased mucous in chest Physical Exam Vitals: Vital Signs Temp Pulse Pulse Resp BP BP Pulse Ox 01/30/24 09:15 98.5 F 01/30/24 06:49 101.8 F H 107 H 16 117/72 97 01/30/24 06:42 102.4 F H 01/30/24 02:07 98.4 F 82 16 110/73 99 01/29/24 23:26 98.1 F 83 16 111/68 99 01/29/24 20:19 100.2 F H 109 H 20 118/82 98 Intake and Output 01/29/24 01/30/24 01/30/24 22:59 06:59 14:59 Intake Total 500 Balance 500 Intake: Intake, IV Titration 500 Amount Vancomycin 1,500 mg In 500 Sodium Chloride 0.9% 500 ml 500 ml @ 167 mls/hr IVPB ONCE ONE Rx#: [id number] Other: Voiding Method Toilet Weight 83.915 kg 83.915 kg - Constitutional General appearance: no acute distress - EENT Eyes: EOMI, PERRLA ENT: hearing grossly normal, normal oropharynx - Neck Neck: no lymphadenopathy Thyroid: bilateral: normal size - Respiratory Respiratory: bilateral: CTA - Cardiovascular Rhythm: regular Heart sounds: normal: S1, S2 - Gastrointestinal General gastrointestinal: normal bowel sounds, soft - Integumentary circular area of redness left calf, with induration most prominent centrally. Ringlike area of some clearing between the central portion, and the edge. Mild warmth on palpation, as well as mild tenderness in the inferior peripheral area Integumentary: calor, cellulitis - Neurologic Neurologic: CNII-XII intact - Musculoskeletal Musculoskeletal: strength equal bilaterally - Psychiatric Psychiatric: A&O x's 3, appropriate affect Results CBC & Chem 7: 01/30/24 04:24 01/30/24 04:24 Labs: Abnormal Lab Results - Last 24 Hours (Table) 01/29/24 01/29/24 01/30/24 Range/Units 21:48 21:48 04:24 WBC 23.8 H 19.4 H (3.8-10.6) k/uL Hgb 11.3 L 11.2 L (11.4-16.0) gm/dL Hct 33.8 L (34.0-46.0) % RDW 15.6 H (11.5-15.5) % Neutrophils # (Manual) 22.10 H (1.3-7.7) k/uL Lymphocytes # (Manual) 0.95 L (1.0-4.8) k/uL Metamyelocytes # (Man) 0.24 H (0) k/uL Nucleated RBCs 2 H (0-0) /100 WBC Sodium 136 L (137-145) mmol/L Chloride 109 H (98-107) mmol/L Carbon Dioxide 21 L (22-30) mmol/L Glucose 116 H (74-99) mg/dL Total Protein 5.8 L (6.3-8.2) g/dL 01/30/24 Range/Units 04:24 WBC (3.8-10.6) k/uL Hgb (11.4-16.0) gm/dL Hct (34.0-46.0) % RDW (11.5-15.5) % Neutrophils # (Manual) (1.3-7.7) k/uL Lymphocytes # (Manual) (1.0-4.8) k/uL Metamyelocytes # (Man) (0) k/uL Nucleated RBCs (0-0) /100 WBC Sodium (137-145) mmol/L Chloride 110 H (98-107) mmol/L Carbon Dioxide (22-30) mmol/L Glucose 105 H (74-99) mg/dL Total Protein 5.6 L (6.3-8.2) g/dL Chest x-ray: report reviewed Assessment and Plan (1) Cellulitis Narrative/Plan: the patient is presenting with progressive symptoms following most likely an insect bite affecting the left lower extremity. She did have an elevated white count with a mild left shift. However the latter is much more likely affect of G-CSF, at least partially. In her situation it is possible that the fever may also be due to G-CSF effect. However it was discussed with her, that given the constellation of symptoms (as well as concern for possible early pneumonia) progressive infection as the main causes cannot be ruled out. - Therefore the patient has been treated with IV antibiotics. Cultures are pending. - continue current treatment, with ongoing monitoring. We discussed that she could potentially be discharged , in the absence of any new signs/symptoms,if her fevers resolve, and cultures remain negative over 48 hours. Current Visit: Yes Status: Acute Code(s): L03.90 - CELLULITIS, UNSPECIFIED SNOMED Code(s): 510468724 (2) Breast cancer, left breast Narrative/Plan: diagnostic and therapeutic circumstances as described. The patient will proceed to cycle #4 on schedule, assuming that her current issue is adequately resolved Current Visit: Yes Status: Acute Code(s): C50.912 - MALIGNANT NEOPLASM OF UNSPECIFIED SITE OF LEFT FEMALE BREAST SNOMED Code(s): 389758171
[2024-01-30] MEDS: VANCOMYCIN 1,250 MG in SODIUM CHLORIDE 0.9% 250 ML IVPB SCH (18:49)
[2024-01-31 04:30] LABS: African American GFR (CKD) >90 (>60 ml/min/1.73 sqM); Anion Gap 4 mmol/L; Blood Urea Nitrogen 9 mg/dL (7-17); Calcium 8.5 mg/dL (8.4-10.2); Carbon Dioxide 22 mmol/L (22-30); Chloride 112 mmol/L (98-107); Glucose 107 mg/dL (74-99); Non-African American GFR(CKD) 84 (>60 ml/min/1.73 sqM); Potassium 3.7 mmol/L (3.5-5.1); Sodium 138 mmol/L (137-145)
--- NOTE | 2024-01-31 07:56 | P.CONS ---
History of Present Illness - Reason for Consult Consult date: 01/30/24 Left leg cellulitis insect bite Requesting physician: Deonte Holt - Chief Complaint Fever x 1 day - History of Present Illness Patient is a 48-year-old female with a past medical history significant for breast cancer on chemo last chemo about 10 days ago presenting to the ER for evaluation of fever patient apparently did have a bug bite on her left leg about 4 days ago patient mention she was able to get in the insect through the pant and did not recognize the insect as it was almost up patient subsequent noticed to have an area of erythema that has progressively got worse patient also have a dull aching pain to the left leg that has also slightly in creased in intensity with the patient developing a fever for the patient presented to the hospital on arrival to the ER patient did have a temperature of 100.2 F she did spike a fever of 102.4 F this morning patient was tachycardic but not hypotensive or hypoxic no need for supplemental oxygen patient did have white count of 23.8 with a left shift creatinine 0.97 electrolytes are normal liver enzymes are normal chest x-ray did not show any acute infiltrate blood cultures obtained which are currently pending infectious disease was consulted for further management of antibiotic therapy Review of Systems Positive point and negatives has been mentioned in the HPI, complete review of systems was performed and all other systems are negative Past Medical History Past Medical History: No Reported History Additional Past Medical History / Comment(s): breast cx History of Any Multi-Drug Resistant Organisms: None Reported Past Surgical History: Cholecystectomy, Hernia Repair Additional Past Surgical History / Comment(s): back Skin biopsy, benign Past Anesthesia/Blood Transfusion Reactions: No Reported Reaction Smoking Status: Former smoker - Past Family History Mother Family Medical History: Congestive Heart Failure (CHF), COPD Additional Family Medical History / Comment(s): ARTHRITIS Father Family Medical History: Cancer, Hypertension Additional Family Medical History / Comment(s): PROSTATE Medications and Allergies Home Medications Medication Instructions Recorded Confirmed Type Loratadine [Claritin] 1 tab PO DIRECTED 12/08/23 01/30/24 History Ondansetron [Zofran] 1 tab PO QID PRN 12/08/23 01/30/24 History dexAMETHasone [Decadron] 8 mg PO DIRECTED 12/08/23 01/30/24 History ALPRAZolam [Xanax] 0.5 mg PO TID PRN 01/30/24 01/30/24 History Omeprazole 20 mg PO DAILY 01/30/24 01/30/24 History Pegfilgrastim-Apgf [Nyvepria] 6 mg SQ Q21D 01/30/24 01/30/24 History Allergies Allergy/AdvReac Type Severity Reaction Status Date / Time azithromycin [From Zithromax] Allergy Rash/Hives Verified 01/30/24 11:37 sulfamethoxazole Allergy Rash/Hives Verified 01/30/24 11:37 [From Bactrim] trimethoprim [From Bactrim] Allergy Rash/Hives Verified 01/30/24 11:37 PINE Allergy Runny nose Uncoded 01/30/24 11:37 and increased mucous in chest Physical Exam Vitals: Vital Signs Temp Pulse Pulse Resp BP BP Pulse Ox 01/30/24 06:42 102.4 F H 01/30/24 02:07 98.4 F 82 16 110/73 99 01/29/24 23:26 98.1 F 83 16 111/68 99 01/29/24 20:19 100.2 F H 109 H 20 118/82 98 Intake and Output 01/29/24 01/30/24 01/30/24 22:59 06:59 14:59 Intake Total 500 Balance 500 Intake: Intake, IV Titration 500 Amount Vancomycin 1,500 mg In 500 Sodium Chloride 0.9% 500 ml 500 ml @ 167 mls/hr IVPB ONCE ONE Rx#: [id number] Other: Weight 83.915 kg 83.915 kg GENERAL DESCRIPTION: Middle-aged female lying in bed, no distress. No tachypnea or accessory muscle of respiration use. HEENT: Shows Pallor , no scleral icterus. Oral mucous membrane is dry. No pharyngeal erythema or thrush NECK: Trachea central, no thyromegaly. LUNGS: Unlabored breathing. Clear to auscultation anteriorly. No wheeze or crackle. HEART: S1, S2, regular rate and rhythm. No loud murmur ABDOMEN: Soft, no tenderness , guarding or rigidity, no organomegaly EXTREMITIES: Left lower leg with an area of redness which is more behaving as a target lesion slightly warm tender to touch. SKIN: No rash, no masses palpable. NEUROLOGICAL: The patient is awake, alert, oriented x3, mood and affect normal. Results CBC & Chem 7: 01/30/24 04:24 01/31/24 03:45 Labs: Abnormal Lab Results - Last 24 Hours (Table) 01/29/24 01/29/24 01/30/24 Range/Units 21:48 21:48 04:24 WBC 23.8 H 19.4 H (3.8-10.6) k/uL Hgb 11.3 L 11.2 L (11.4-16.0) gm/dL Hct 33.8 L (34.0-46.0) % RDW 15.6 H (11.5-15.5) % Neutrophils # (Manual) 22.10 H (1.3-7.7) k/uL Lymphocytes # (Manual) 0.95 L (1.0-4.8) k/uL Metamyelocytes # (Man) 0.24 H (0) k/uL Nucleated RBCs 2 H (0-0) /100 WBC Sodium 136 L (137-145) mmol/L Chloride 109 H (98-107) mmol/L Carbon Dioxide 21 L (22-30) mmol/L Glucose 116 H (74-99) mg/dL Total Protein 5.8 L (6.3-8.2) g/dL 01/30/24 Range/Units 04:24 WBC (3.8-10.6) k/uL Hgb (11.4-16.0) gm/dL Hct (34.0-46.0) % RDW (11.5-15.5) % Neutrophils # (Manual) (1.3-7.7) k/uL Lymphocytes # (Manual) (1.0-4.8) k/uL Metamyelocytes # (Man) (0) k/uL Nucleated RBCs (0-0) /100 WBC Sodium (137-145) mmol/L Chloride 110 H (98-107) mmol/L Carbon Dioxide (22-30) mmol/L Glucose 105 H (74-99) mg/dL Total Protein 5.6 L (6.3-8.2) g/dL Assessment and Plan (1) Left leg cellulitis Current Visit: Yes Status: Acute Code(s): L03.116 - CELLULITIS OF LEFT LOWER LIMB SNOMED Code(s): 75559881972674004 (2) Allergy to multiple antibiotics Current Visit: Yes Status: Acute Code(s): Z88.1 - ALLERGY STATUS TO OTHER ANTIBIOTIC AGENTS SNOMED Code(s): 803612810 Plan: 1patient presenting to the hospital with sepsis in this patient who did have fever tachycardia elevated white count source is cellulitis to the left lower extremity with a history of insect bite about 4 days ago rash do have a features of bull's-eye and suspicious for possible Lyme disease and a question of secondary cellulitis. 2patient with multiple antibiotic ALLERGIES that would limit the number of antibiotic safe to use 3continue with the vancomycin pharmacy to dose will add doxycycline 100 mg twice a day We will follow on clinical condition and cultures to further adjust medication if needed Thank you for this consultation we will follow the patient along with you Dictation was produced using [employer] dictation software. please excuse any grammatical, word or spelling errors. Time with Patient: Greater than 30
[2024-01-31 09:49] LABS: Basophils # (M) 0 X 10*3/uL (0.00-0.10); Eosinophils # (M) 0 X 10*3/uL (0.04-0.35); HCT 30.2 % (37.2-46.3); HGB 9.9 g/dL (12.0-15.0); Lymphocytes # (M) 0.84 X 10*3/uL (0.90-5.00); MCH 29.6 pg (27.0-32.0); MCHC 32.8 g/dL (32.0-37.0); MCV 90.4 FL (80.0-97.0); Metamyelocytes % 2 % (0-0); Myelocytes % 2 % (0-0); NRBC Per 100 WBC 0 X 10*3/uL (0.00-0.01); Neutrophils % (M) 88 %; Platelet Count 163 X 10*3/uL (140-440); RBC 3.34 X 10*6/uL (4.10-5.20); RBC Morphology Normal (Normal); RDW 15.9 % (11.5-14.5)
[2024-01-31] MEDS: VANCOMYCIN 1,500 MG in SODIUM CHLORIDE 0.9% 500 ML 500 ML IVPB SCH (11:02)
--- NOTE | 2024-01-31 12:50 | US ---
EXAMINATION TYPE: US venous doppler duplex LE LT DATE OF EXAM: 01/31/2024 12:06 PM Exam done portable COMPARISON: NONE CLINICAL INDICATION: Female, 48 years old with history of edema LLE; Left calf swelling and redness a round spider bite SIDE PERFORMED: Left TECHNIQUE: The lower extremity deep venous system is examined utilizing real time linear array sonog jessi with graded compression, doppler sonography and color-flow sonography. VESSELS IMAGED: Common Femoral Vein Deep Femoral Vein Greater Saphenous Vein * Femoral Vein Popliteal Vein Small Saphenous Vein * Proximal Calf Veins (* superficial vessels) Left Leg: Appears negative for DVT IMPRESSION: Grayscale, color doppler, spectral doppler imaging performed of the deep veins of the lo wer extremities. There is normal flow, compressibility, vascular waveforms.
--- NOTE | 2024-01-31 14:57 | P.PN ---
Subjective Progress Note Date: 01/31/24 Subjective: Patient seen at bedside. No significant overnight events. Pertinent positives and negatives discussed above, a complete review of systems was preformed and all the other sytems were negative. Vitals Signs Reveiwed. General: non toxic, no distress, appears at stated age, normal weight Derm: Circular erythema on LLE with, "bullseye appearance." Increased warmth in this area as well as induration to touch within erythematous area Head: atraumatic, normocephalic, symmetric Eyes: EOMI, no lid lag, anicteric sclera, pupils equal round reactive to light ENT: Nose and ears atraumatic Neck: No cervical lymphadenopathy, trachea midline, supple Mouth: no lip lesion, mucus membranes moist Cardiovascular: S1S2 reg, no murmur, positive dorsalis pedis pulse bilateral, no edema Lungs: Decreased air entry bilaterally, no rhonchi, no rales, no accessory muscle use Abdominal: soft, nontender to palpation, no guarding Ext: muscle strength 5 out of 5 in all 4 extremities grossly, no gross muscle atrophy, no contractures, Neuro: CN II-XI grossly intact, no gross focal neuro deficits Psych: Alert, oriented, appropriate affect Data Reveiwed Today: Patient Labs: Sodium 138, potassium 3.7, chloride 112, glucose 107,CBC will be reviewed when available Imaging: No new imaging. Assesment and Plan: 48-year-old female with recent diagnosis of breast cancer currently on chemotherapy presents with pain in her left leg after a bug bite. Patient is admitted for further workup and treatment of cellulitis. sepsis 2/2 right lower extremity cellulitis Erythema appears slightly increased from yesterday, discussed with ID and will consider changing antibiotic course. Discussed with ID, will continue IV vancomycin 250 mL IVPB every 16 hours and doxycycline 100 mg p.o. twice daily. monitor for renal toxicity with IV vancomycin Continue NS IV 130 mL/h CXR from 6 (01/29) showed right lower lobe medial airspace opacities, continue to monitor for signs of pneumonia Pending blood cultures and Lyme negative Mild hyponatremia: Resolved Sodium 138 Continue with IV fluid hydration as above Continue to monitor renal function Mild anemia Pending CBC for today patient baseline is around 12 Most likely secondary to chemotherapy Patient denies any bleeding Continue to monitor Breast cancer, left breast: -Recent diagnosis Patient will continue to cycle 4 on schedule for chemotherapy, assuming current cellulitis is adequately resolved -Oncology following GERD - Omeprazole 20 mg daily F NS 130 mL/h E none N regular diet A normally walks unassisted at home DVT ppx: Lovenox 40 mg SQ daily Code Status: Full code Anticipated discharge place: Pending clinical course Anticipated discharge time: Pending clinical course I have seen and evaluated the patient today. Discussed with the resident and agree with resident's findings and plan as documented in the resident's note. Changes highlighted in blue font. Objective - Vital Signs Vital signs: Vital Signs Temp 102.6 F H 01/31/24 01:40 Pulse 98 01/31/24 01:40 Resp 18 01/31/24 01:40 BP 109/71 01/31/24 01:40 Pulse Ox 99 01/31/24 01:40 FiO2 Intake & Output 01/30/24 01/31/24 01/31/24 18:59 06:59 18:59 Other: Voiding Method Toilet Toilet # Voids 2 2 - Labs CBC & Chem 7: 01/31/24 03:45 01/31/24 03:45 Labs: Abnormal Lab Results - Last 24 Hours (Table) 01/31/24 Range/Units 03:45 Chloride 112 H (98-107) mmol/L Glucose 107 H (74-99) mg/dL
--- NOTE | 2024-01-31 18:25 | P.PN ---
Subjective Progress Note Date: 01/31/24 Continues on IV abx, 102.6 fever noted early this morning. Reporting persisting tightness in left calf and worsening erythema. BC pending, Leukocytosis improving, WBC 16.7 today Objective - Vital Signs Vital signs: Vital Signs Temp 98.5 F 01/31/24 07:16 Pulse 84 01/31/24 07:16 Resp 17 01/31/24 07:16 BP 105/64 01/31/24 07:16 Pulse Ox 100 01/31/24 07:16 FiO2 Intake & Output 01/30/24 01/31/24 01/31/24 18:59 06:59 18:59 Other: Voiding Method Toilet Toilet Toilet # Voids 2 2 - Constitutional General appearance: Present: average body habitus, no acute distress - EENT Eyes: Present: anicteric sclerae, EOMI ENT: Present: hearing grossly normal - Respiratory Details: breathing is even and unlabored - Cardiovascular Details: skin warm and dry - Integumentary Integumentary Comment(s): increasing erythema to left calf, mildly tender on palpation - Neurologic Neurologic: Present: CNII-XII intact - Musculoskeletal Musculoskeletal: Present: strength equal bilaterally - Psychiatric Psychiatric: Present: A&O x's 3 - Labs CBC & Chem 7: 01/31/24 03:45 01/31/24 03:45 Labs: Abnormal Lab Results - Last 24 Hours (Table) 01/31/24 01/31/24 Range/Units 03:45 03:45 WBC 16.70 H (4.50-10.00) X 10*3/uL RBC 3.34 L (4.10-5.20) X 10*6/uL Hgb 9.9 L (12.0-15.0) g/dL Hct 30.2 L (37.2-46.3) % RDW 15.9 H (11.5-14.5) % Neutrophils # (Manual) 14.70 H (1.80-7.70) X 10*3/uL Lymphocytes # (Manual) 0.84 L (0.90-5.00) X 10*3/uL Eosinophils # (Manual) 0 L (0.04-0.35) X 10*3/uL Chloride 112 H (98-107) mmol/L Glucose 107 H (74-99) mg/dL Assessment and Plan (1) Breast cancer, left breast Current Visit: Yes Status: Acute Priority: Medium Code(s): C50.912 - MALIGNANT NEOPLASM OF UNSPECIFIED SITE OF LEFT FEMALE BREAST SNOMED Code(s): 035250536 (2) Left leg cellulitis Current Visit: Yes Status: Acute Priority: High Code(s): L03.116 - CELLULITIS OF LEFT LOWER LIMB SNOMED Code(s): 06111706999622210 Plan: Cellulitis: Patient is presenting with progressive symptoms following most likely an insect bite affecting the left lower extremity. She did have an elevated white count with a mild left shift. However the latter is much more likely affect of G-CSF, at least partially. In her situation it is possible that the fever may also be due to G-CSF effect. However, it was discussed with her, that given the constellation of symptoms (as well as concern for possible early pneumonia) progressive infection as the main causes cannot be ruled out. - Therefore the patient has been treated with IV antibiotics. Blood cultures negative at 24 hours - Continue current treatment, with ongoing monitoring. We discussed that she could potentially be discharged , in the absence of any new signs/symptoms,if her fevers resolve, and cultures remain negative over 48 hours. -102.6 fever noted early this morning. Leukocytosis improving, WBC 16.7 today -Spoke with ID today, they have made adjustments to antibiotics, if symptoms/fever persisting, will obtain CT of LLE for further evaluation -Will obtain LLE doppler to r/o acute VTE Breast cancer: Diagnostic and therapeutic circumstances as described in consult HPI. The patient will proceed to cycle #4 on schedule, assuming that her current issue is adequately resolved. Will follow up on ID abx recommendations upon discharge attests:I have seen and examined pt, performed H&P, developed impression and plan of care. Discussed with dictator. Agree with documentation, dictated as a scribe.
--- NOTE | 2024-01-31 22:29 | P.PN ---
Subjective Progress Note Date: 01/31/24 Principal diagnosis: Reason for follow-up is left lower extremity cellulitis Patient is a 48-year-old female with a history of breast cancer on chemo presenting to the hospital with fever and the patient also noticed to have a bug bite to the left leg with evidence of cellulitis. On today's evaluation that is 01/31/2024,the patient did have a temperature of 102.6 F at 1 AM however the patient remains to be afebrile since then, patient is on room air not requiring supplemental oxygen and denies any shortness of breath no chest pain or cough.Patient denies having any nausea or vomiting, no abdominal pain and no diarrhea has been reported, patient denies having any worsening pain to the left lower extremity. The patient white count is down to 17.70, creatinine 0.82 Objective - Vital Signs Vital signs: Vital Signs Temp 98.5 F 01/31/24 07:16 Pulse 84 01/31/24 07:16 Resp 17 01/31/24 07:16 BP 105/64 01/31/24 07:16 Pulse Ox 100 01/31/24 07:16 FiO2 Intake & Output 01/30/24 01/31/24 01/31/24 18:59 06:59 18:59 Other: Voiding Method Toilet Toilet Toilet # Voids 2 2 - Exam GENERAL DESCRIPTION: Middle-age female lying in bed in no distress RESPIRATORY SYSTEM: Unlabored breathing , decreased breath sounds at bases HEART: S1 S2 regular rate and rhythm , ABDOMEN: Soft , no tenderness EXTREMITIES: Left lower extremity redness minimal extension beyond the line minimal induration but no fluctuation erythema less intensity - Labs CBC & Chem 7: 01/31/24 03:45 01/31/24 03:45 Labs: Abnormal Lab Results - Last 24 Hours (Table) 01/31/24 01/31/24 Range/Units 03:45 03:45 WBC 16.70 H (4.50-10.00) X 10*3/uL RBC 3.34 L (4.10-5.20) X 10*6/uL Hgb 9.9 L (12.0-15.0) g/dL Hct 30.2 L (37.2-46.3) % RDW 15.9 H (11.5-14.5) % Neutrophils # (Manual) 14.70 H (1.80-7.70) X 10*3/uL Lymphocytes # (Manual) 0.84 L (0.90-5.00) X 10*3/uL Eosinophils # (Manual) 0 L (0.04-0.35) X 10*3/uL Chloride 112 H (98-107) mmol/L Glucose 107 H (74-99) mg/dL Assessment and Plan (1) Left leg cellulitis Current Visit: Yes Status: Acute Priority: High Code(s): L03.116 - CELLULITIS OF LEFT LOWER LIMB SNOMED Code(s): 73286634178391327 (2) Allergy to multiple antibiotics Current Visit: Yes Status: Acute Code(s): Z88.1 - ALLERGY STATUS TO OTHER ANTIBIOTIC AGENTS SNOMED Code(s): 930198110 Plan: 1patient presenting to the hospital with sepsis in this patient who did have fever tachycardia elevated white count source is cellulitis to the left lower extremity with a history of insect bite about 4 days ago rash do have a features of bull's-eye and suspicious for possible Lyme disease and a question of secondary cellulitis. 2patient with multiple antibiotic ALLERGIES that would limit the number of antibiotic safe to use 3patient to continue with the vancomycin dose adjusted up by pharmacy to keep trough around 15 we will start the patient on Rocephin and discontinue doxyc ycline no need for any imaging at this point if persistent fever or any worsening white count may consider CT tomorrow this was discussed with oncology Dictation was produced using [employer] dictation software. please excuse any grammatical, word or spelling errors. Time with Patient: Less than 30
--- NOTE | 2024-02-01 05:24 | CT ---
EXAMINATION TYPE: CT chest angio for PE DATE OF EXAM: 02/01/2024 COMPARISON: NONE HISTORY: elevated d-dimer. H/O breast CA, last tx was 01/19/24. Shortness of breath. CT DLP: 314.6 mGycm. Automated Exposure Control for Dose Reduction was Utilized. CONTRAST: CTA scan of the thorax is performed with IV Contrast, patient injected with 64 mL of Isovue 370, pulm onary embolism protocol. MIP Images are created on CT scanner and reviewed. FINDINGS: LUNGS: The lungs are grossly clear, there is no concerning parenchymal mass or nodule identified. T here is no pleural effusion or pneumothorax seen. The tracheobronchial tree is patent. MEDIASTINUM: Suboptimal study with most dense contrast in SVC but no convincing CT evidence for acute pulmonary embolism. Some enhancement of the aorta without aneurysm or dissection. There are no grea ter than 1 cm hilar or mediastinal lymph nodes. No cardiomegaly or pericardial effusion is seen. OTHER: Prominent but subcentimeter bilateral axillary lymph nodes. Cholecystectomy clips are seen. Sl ight scoliotic curvature. IMPRESSION: 1. Suboptimal study without acute pulmonary embolism. 2. No suspicious acute pulmonary process.
[2024-02-01 07:24] VITALS: TEMP 98.2
--- NOTE | 2024-02-01 08:11 | XR ---
EXAMINATION TYPE: XR chest 1V portable DATE OF EXAM: 02/01/2024 HISTORY: Shortness of breath. COMPARISON: 01/30/2024 TECHNIQUE: Single view of the chest is submitted. FINDINGS: Demonstrated are scattered senescent parenchymal change. Increased density right medial lung base persists although has improved. Correlate for underlying ate lectasis or focal infiltrate. The heart is stable. Hilar and mediastinal structures are within normal limits. Degenerative changes are seen of the dorsal spine. IMPRESSION: 1. Increased density right medial lung base persists although has improved. Correlate for underlying atelectasis or focal infiltrate.
[2024-02-01] MEDS: PANTOPRAZOLE 40 MG TABLET PO SCH (08:18)
[2024-02-01 08:30] LABS: HCT 30.3 % (37.2-46.3); MCH 29.3 pg (27.0-32.0); MCV 88.9 FL (80.0-97.0); Mean Platelet Volume 9.8 FL (9.5-12.2); NRBC Per 100 WBC 0 X 10*3/uL (0.00-0.01); Platelet Count 160 X 10*3/uL (140-440); RBC 3.41 X 10*6/uL (4.10-5.20); RDW 15.7 % (11.5-14.5); WBC 12.59 X 10*3/uL (4.50-10.00)
[2024-02-01] MEDS: VANCOMYCIN TROUGH DUE 1 EACH MISC MISCELLANE ONE (08:30)
[2024-02-01 09:12] LABS: African American GFR (CKD) >90 (>60 ml/min/1.73 sqM); Anion Gap 6 mmol/L; Blood Urea Nitrogen 5 mg/dL (7-17); Calcium 8.7 mg/dL (8.4-10.2); Carbon Dioxide 23 mmol/L (22-30); Chloride 112 mmol/L (98-107); Glucose 98 mg/dL (74-99); Non-African American GFR(CKD) >90 (>60 ml/min/1.73 sqM); Potassium 3.7 mmol/L (3.5-5.1); Sodium 141 mmol/L (137-145)
[2024-02-01 09:48] LABS: Basophils # (M) 0.13 X 10*3/uL (0.00-0.10); Eosinophils # (M) 0 X 10*3/uL (0.04-0.35); Lymphocytes # (M) 0.76 X 10*3/uL (0.90-5.00); Metamyelocytes % 1 % (0-0); Monocytes # (M) 0.13 X 10*3/uL (0.20-1.00); Myelocytes % 1 % (0-0); Neutrophils # (M) 11.33 X 10*3/uL (1.80-7.70); Neutrophils % (M) 90 %
[2024-02-01] MEDS: traMADol 50 MG TAB PO PRN (09:52)
[2024-02-01 11:23] LABS: C Reactive Protein 14.9 mg/dL (<1.0)
--- NOTE | 2024-02-01 12:46 | P.PN ---
Subjective Progress Note Date: 02/01/24 No fever x 24 hours, Blood culture negative. Antibiotics adjusted per ID. Reporting improvement in LLE edema and erythema. LLE doppler negative for DVT. Leukocytosis improving, WBC 12.5 today Reports earlier this morning had episode of SOB with associated chest discomfort. Of note, since starting treatment patient has had intermittent mid chest discomfort, worse after treatment for about 1 week, with improvement in symptoms inbetween cycles. Her symptoms appear to be likely r/t bone pain/myalgias from Taxotere, which can commonly be seen with taxanes CTA chest obtained today was negative for PE and for acute pulmonary processes Objective - Vital Signs Vital signs: Vital Signs Temp 98.2 F 02/01/24 06:50 Pulse 77 02/01/24 08:00 Resp 18 02/01/24 08:00 BP 108/68 02/01/24 06:50 Pulse Ox 97 02/01/24 06:50 FiO2 Intake & Output 01/31/24 02/01/24 02/01/24 18:59 06:59 18:59 Intake Total 540 Balance 540 Intake: Oral 540 Other: Voiding Method Toilet Toilet # Voids 3 5 - Constitutional General appearance: Present: average body habitus, no acute distress - EENT Eyes: Present: anicteric sclerae, EOMI ENT: Present: hearing grossly normal - Respiratory Details: breathing is even and unlabored - Cardiovascular Details: well perfused - Gastrointestinal General gastrointestinal: Present: soft. Absent: tenderness - Integumentary Integumentary Comment(s): erythema and edema of left calf improved - Musculoskeletal Musculoskeletal: Present: strength equal bilaterally - Psychiatric Psychiatric: Present: A&O x's 3 - Labs CBC & Chem 7: 02/01/24 03:13 02/01/24 08:18 Labs: Abnormal Lab Results - Last 24 Hours (Table) 02/01/24 02/01/24 02/01/24 Range/Units 03:13 03:13 08:18 WBC 12.59 H (4.50-10.00) X 10*3/uL RBC 3.41 L (4.10-5.20) X 10*6/uL Hgb 10.0 L (12.0-15.0) g/dL Hct 30.3 L (37.2-46.3) % RDW 15.7 H (11.5-14.5) % Neutrophils # (Manual) 11.33 H (1.80-7.70) X 10*3/uL Lymphocytes # (Manual) 0.76 L (0.90-5.00) X 10*3/uL Monocytes # (Manual) 0.13 L (0.20-1.00) X 10*3/uL Eosinophils # (Manual) 0 L (0.04-0.35) X 10*3/uL Basophils # (Manual) 0.13 H (0.00-0.10) X 10*3/uL D-Dimer 1.53 H (<0.60) mg/L FEU Chloride 112 H (98-107) mmol/L BUN 5 L (7-17) mg/dL C-Reactive Protein 14.9 H (<1.0) mg/dL Microbiology - Last 24 Hours (Table) 01/29/24 21:48 Blood Culture - Preliminary Blood 01/29/24 21:28 Blood Culture - Preliminary Blood - Imaging and Cardiology CT scan - chest: report reviewed Venous US: report reviewed Assessment and Plan (1) Breast cancer, left breast Current Visit: Yes Status: Acute Priority: Medium Code(s): C50.912 - MALIGNANT NEOPLASM OF UNSPECIFIED SITE OF LEFT FEMALE BREAST SNOMED Code(s): 324328040 (2) Left leg cellulitis Current Visit: Yes Status: Acute Priority: High Code(s): L03.116 - CELLULITIS OF LEFT LOWER LIMB SNOMED Code(s): 83869194112673730 Plan: Cellulitis: Patient is presenting with progressive symptoms following most likely an insect bite affecting the left lower extremity. She did have an elevated white count with a mild left shift. However the latter is much more likely affect of G-CSF, at least partially. In her situation it is possible that the fever may also be due to G-CSF effect. However, it was discussed with her, that given the constellation of symptoms (as well as concern for possible early pneumonia) progressive infection as the main causes cannot be ruled out. - Therefore the patient has been treated with IV antibiotics. - Continue current treatment, with ongoing monitoring. We discussed that she could potentially be discharged , in the absence of any new signs/symptoms,if her fevers resolve, and cultures remain negative over 48 hours. -Spoke with ID, they have made adjustments to antibiotics, if symptoms/fever persisting, will obtain CT of LLE for further evaluation -LLE doppler negative for acute DVT -No fever x 24 hours, with improvement in left calf erythema and edema. Blood cultures negative thus far. Leukocytosis improving, WBC 12.5 today Breast cancer: Diagnostic and therapeutic circumstances as described in consult HPI. The patient will proceed to cycle #4 on schedule, assuming that her current issue is adequately resolved. Will follow up on ID abx recommendations upon discharge SOB/CP: Reports earlier this morning had episode of SOB with associated chest discomfort. -CTA chest was negative for PE and for acute pulmonary processes -Of note, since starting treatment patient has had intermittent mid chest discomfort, worse after treatment for about 1 week, with improvement in symptoms inbetween cycles. Her symptoms appear to be likely r/t bone pain/myalgias from Taxotere, which can commonly be seen with taxanes. Will continue to monitor s ymptoms
--- NOTE | 2024-02-01 13:00 | P.PN ---
Subjective Progress Note Date: 02/01/24 Principal diagnosis: Reason for follow-up is left lower extremity cellulitis Patient is a 48-year-old female with a history of breast cancer on chemo presenting to the hospital with fever and the patient also noticed to have a bug bite to the left leg with evidence of cellulitis. On today's evaluation that is 02/01/2024, the patient did have resolution of her fever and no fever more than 24 hours now, the patient is on room air and breathing comfortably, the Pt denies having any chest pain or cough, the patient denies having any abdominal pain no vomiting did have some soft blood but no runny diarrhea left leg swelling redness has decreased pain has improved patient feeling better wants to go home. Patient white count is down to 12.59 creatinine 0.76 Vanco trough was low at 10.4 blood culture has been negative Objective - Vital Signs Vital signs: Vital Signs Temp 98.2 F 02/01/24 06:50 Pulse 77 02/01/24 08:00 Resp 18 02/01/24 08:00 BP 108/68 02/01/24 06:50 Pulse Ox 97 02/01/24 06:50 FiO2 Intake & Output 01/31/24 02/01/24 02/01/24 18:59 06:59 18:59 Intake Total 540 Balance 540 Intake: Oral 540 Other: Voiding Method Toilet Toilet # Voids 3 5 - Exam GENERAL DESCRIPTION: Middle-age female lying in bed in no distress RESPIRATORY SYSTEM: Unlabored breathing , decreased breath sounds at bases HEART: S1 S2 regular rate and rhythm , ABDOMEN: Soft , no tenderness EXTREMITIES: Left lower extremity swelling redness has decreased no open wound or any drainage - Labs CBC & Chem 7: 02/01/24 03:13 02/01/24 08:18 Labs: Abnormal Lab Results - Last 24 Hours (Table) 02/01/24 02/01/24 02/01/24 Range/Units 03:13 03:13 08:18 WBC 12.59 H (4.50-10.00) X 10*3/uL RBC 3.41 L (4.10-5.20) X 10*6/uL Hgb 10.0 L (12.0-15.0) g/dL Hct 30.3 L (37.2-46.3) % RDW 15.7 H (11.5-14.5) % Neutrophils # (Manual) 11.33 H (1.80-7.70) X 10*3/uL Lymphocytes # (Manual) 0.76 L (0.90-5.00) X 10*3/uL Monocytes # (Manual) 0.13 L (0.20-1.00) X 10*3/uL Eosinophils # (Manual) 0 L (0.04-0.35) X 10*3/uL Basophils # (Manual) 0.13 H (0.00-0.10) X 10*3/uL D-Dimer 1.53 H (<0.60) mg/L FEU Chloride 112 H (98-107) mmol/L BUN 5 L (7-17) mg/dL Microbiology - Last 24 Hours (Table) 01/29/24 21:48 Blood Culture - Preliminary Blood 01/29/24 21:28 Blood Culture - Preliminary Blood Assessment and Plan (1) Left leg cellulitis Current Visit: Yes Status: Acute Priority: High Code(s): L03.116 - CELLULITIS OF LEFT LOWER LIMB SNOMED Code(s): 64612319754512338 (2) Allergy to multiple antibiotics Current Visit: Yes Status: Acute Code(s): Z88.1 - ALLERGY STATUS TO OTHER ANTIBIOTIC AGENTS SNOMED Code(s): 286695171 Plan: 1patient presenting to the hospital with sepsis in this patient who did have fever tachycardia elevated white count source is cellulitis to the left lower extremity with a history of insect bite about 4 days ago rash do have a features of bull's-eye and suspicious for possible Lyme disease and a question of secondary cellulitis. 2patient with multiple antibiotic ALLERGIES that would limit the number of antibiotic safe to use 3patient seem to have shown overall clinical improvement and did have resolution of her fever white count is trending down blood culture has been negative patient has been insisting on going home we will consider 10-day course of oral doxycycline and Ceftin on discharge and close outpatient follow-up Dictation was produced using [employer] software. please excuse any grammatical, word or spelling errors. Time with Patient: Less than 30
[2024-02-01 13:25] VITALS: BP 112/74; PULSE 69; RESP 16
--- NOTE | 2024-02-01 14:22 | P.DS ---
Providers Date of admission: 01/29/24 23:11 Discharge Diagnosis: Sepsis secondary to right lower extremity cellulitis Mild hyponatremia Mild anemia Breast cancer, left breast, GERD Hospital Course: 48-year-old female with recent diagnosis of breast cancer currently on chemotherapy presented to the emergency department with fever and lower extremity irritation after being bitten in the left lower extremity by an insect a couple days prior. In the ED patient's vitals were significant for heart rate 109. Patient's labs in the ED were significant for WBC 23.8, hemoglobin 11.3, neutrophils 22.1, sodium 136, glucose 116, and total protein 5.8. Imaging in the ED was significant for CXR which showed right lower lobe medial airspace opacities. At this time blood cultures were ordered, and patient was admitted for further workup of sepsis likely secondary to cellulitis in the left lower extremity. While admitted patient received IV vancomycin 250 mL IVPB every 16 hours and doxycycline 100 mg p.o. twice daily for her cellulitis. Patient also received venous Doppler study which showed normal flow, compressibility, vascular waveforms. Patient also received CT chest which showed no evidence of PE. These tests were ordered after suspicion arose for PE when patient had elevated D-dimer. PE was ruled out after imaging was read. Patient's blood cultures from admission came back showing no growth after 48 hours, and in addition the patient's vitals and white blood cell count remained within normal limits after admission at which point it was felt that the patient could be medically cleared for discharge. Patient is discharged home patient's IV antibiotics were converted to oral Ceftin 500 mg twice daily and doxycycline 100 mg twice daily both for 10-day course. Patient is advised to follow-up with her PCP and the infectious disease doctor. Patient is recommended to read handouts given to her in regards to cellulitis. Pt seen and examined at bedside: Patient sitting up in bed enjoying breakfast, asking when she could leave this morning. Patient reporting she feels very good and looks forward to going home. Vital signs reveiwed and stable: General: non toxic, no distress, appears at stated age, normal weight Derm: Circular erythema on LLE with, "bullseye appearance." Increased warmth in this area as well as induration to touch within erythematous area Head: atraumatic, normocephalic, symmetric Eyes: EOMI, no lid lag, anicteric sclera, pupils equal round reactive to light ENT: Nose and ears atraumatic Neck: No cervical lymphadenopathy, trachea midline, supple Mouth: no lip lesion, mucus membranes moist Cardiovascular: S1S2 reg, no murmur, positive dorsalis pedis pulse bilateral, no edema Lungs: Decreased air entry bilaterally, no rhonchi, no rales, no accessory muscle use Abdominal: soft, nontender to palpation, no guarding Ext: muscle strength 5 out of 5 in all 4 extremities grossly, no gross muscle atrophy, no contractures, Neuro: CN II-XI grossly intact, no gross focal neuro deficits Psych: Alert, oriented, appropriate affect A total of [] minutes were spent preparing this complex discarge summary. Patient was discharged on []. Attending physician: Deonte Holt MD Consults: 01/29/24 23:11 Consult Physician Urgent Consulting Provider: Ceci Low Consult Reason/Comments: Oncological care Do you want consulting provider notified?: Yes 01/30/24 00:30 Consult Physician Routine Consulting Provider: Tiffany Toledo Consult Reason/Comments: left leg cellulitis insect bite Do you want consulting provider notified?: Yes, Notify in am Primary care physician: [facility] Course: I have seen and evaluated the patient today. Discussed with the resident and agree with the residents subjective and objective as documented in the resident's note. The assessment and plan was discussed and outlined as below. Erythema improved. No complaints. Wanting to go home. Discussed with Dr. Toledo, Ceftin and Doxycycline for 10 days. Discharge Diagnosis: Sepsis secondary to RLE cellulitis in the setting of immunocompromised patient (undergoing chemotherapy for breast CA) Elevated D-Dimer with CTA chest and venous doppler ruling out PE/DVT Normocytic anemia Breast CA GERD This complex discharge took 35 minutes to complete. Patient Condition at Discharge: Stable Plan - Discharge Summary Discharge Rx Participant: Yes New Discharge Prescriptions: New cefUROXime axetiL [Ceftin] 500 mg PO BID 10 Days #20 tab Doxycycline Hyclate 100 mg PO BID 10 Days #20 tab Continue Ondansetron [Zofran] 1 tab PO QID PRN PRN Reason: Nausea Loratadine [Claritin] 1 tab PO DIRECTED Omeprazole 20 mg PO DAILY ALPRAZolam [Xanax] 0.5 mg PO TID PRN PRN Reason: Anxiety dexAMETHasone [Decadron] 8 mg PO DIRECTED Pegfilgrastim-Apgf [Nyvepria] 6 mg SQ Q21D Discharge Medication List Loratadine [Claritin] 1 tab PO DIRECTED 12/08/23 [History] Ondansetron [Zofran] 1 tab PO QID PRN 12/08/23 [History] dexAMETHasone [Decadron] 8 mg PO DIRECTED 12/08/23 [History] ALPRAZolam [Xanax] 0.5 mg PO TID PRN 01/30/24 [History] Omeprazole 20 mg PO DAILY 01/30/24 [History] Pegfilgrastim-Apgf [Nyvepria] 6 mg SQ Q21D 01/30/24 [History] Doxycycline Hyclate 100 mg PO BID 10 Days #20 tab 02/01/24 [Rx] cefUROXime axetiL [Ceftin] 500 mg PO BID 10 Days #20 tab 02/01/24 [Rx] Follow up Appointment(s)/Referral(s): Ted Adams MD [Primary Care Provider] - 1-2 days () Tiffany Toledo MD [STAFF PHYSICIAN] - 02/07/24 3:00 pm (on Wednesday) Patient Instructions/Handouts: Cellulitis (GEN) Discharge Disposition: HOME SELF-CARE
[2024-02-01] MEDS ORDERED: VANCOMYCIN 1,500 MG in SODIUM CHLORIDE 0.9% 500 ML 500 ML IVPB SCH (22:00)
== END 2024-02-01 14:59 | disposition home or self-care (01) | DRG 871 ==
LOC: EC 20:07 → 4SSUR 23:11
PROVIDERS: ADMIT Internal Medicine; ATTEND Internal Medicine
DX: A41.89 Other specified sepsis (principal); D61.1 Drug-induced aplastic anemia; E87.1 Hypo-osmolality and hyponatremia; A69.20 Lyme disease, unspecified; L03.116 Cellulitis of left lower limb; C50.912 Malignant neoplasm of unspecified site of left female breast; D63.8 Anemia in other chronic diseases classified elsewhere; K21.9 Gastro-esophageal reflux disease without esophagitis; T45.1X5A Adverse effect of antineoplastic and immunosuppressive drugs, initial encounter; R79.89 Other specified abnormal findings of blood chemistry; M79.18 Myalgia, other site; S80.862A Insect bite (nonvenomous), left lower leg, initial encounter; W57.XXXA Bitten or stung by nonvenomous insect and other nonvenomous arthropods, initial encounter; Z88.0 Allergy status to penicillin; Z88.1 Allergy status to other antibiotic agents; Z88.2 Allergy status to sulfonamides; Z91.048 Other nonmedicinal substance allergy status; Z87.891 Personal history of nicotine dependence; Z79.899 Other long term (current) drug therapy
CPT/HCPCS: 36415; 71045; 71046; 71275; 80048; 80053; 80202; 83605; 85025; 85379; 86140; 86618; 87040; 96365; 99291

== ENCOUNTER → 2024-04-18 | Outpatient (CLI) | payer OTHER ==
[2024-04-18 19:41] LABS: Basophils # (A) 0.04 X 10*3/uL (0.00-0.10); Basophils % (A) 0.8 %; Eosinophils # (A) 0.26 X 10*3/uL (0.04-0.35); Eosinophils % (A) 4.9 %; HGB 13.3 g/dL (12.0-15.0); Lymphocytes # (A) 1.61 X 10*3/uL (0.90-5.00); Lymphocytes % (A) 30.3 %; MCH 29.8 pg (27.0-32.0); MCHC 33.3 g/dL (32.0-37.0); MCV 89.7 FL (80.0-97.0); Mean Platelet Volume 10.6 FL (9.5-12.2); Monocytes # (A) 0.56 X 10*3/uL (0.20-1.00); Monocytes % (A) 10.5 %; NRBC Per 100 WBC 0 X 10*3/uL (0.00-0.01); Neutrophils # (A) 2.83 X 10*3/uL (1.80-7.70); Neutrophils % (A) 53.1 %; Platelet Count 260 X 10*3/uL (140-440); RBC 4.46 X 10*6/uL (4.10-5.20); RDW 12.1 % (11.5-14.5); WBC 5.32 X 10*3/uL (4.50-10.00)
== END | disposition home or self-care (01) ==
LOC: LABWHC1 14:05
PROVIDERS: ATTEND Family Medicine
CPT/HCPCS: 36415; 85025; 86618

== ENCOUNTER → 2024-04-28 | Outpatient (CLI) | payer OTHER ==
--- NOTE | 2024-04-28 16:04 | CA ---
Stress Echo Report Reshma Buckley Age: 48 Gender: F : 1975 Exam Date: 04/28/2024 09:33 Exam Location: [facility] Ht (in): 64 Wt (lb): 185 Ordering Physician: Ted Adams MD Referring Physician: Isabel Sainz Wrapper Cashier: MAYRA/BRENT Technologist Procedure CPT: Indication: R00.0 tachycardia ICD-9 Codes: Rhythm: Patient History: Cardiac Medications: NONE Medications in past 24 hours: Contrast: Definity Stress Results Protocol: Paramjit Total dose(mL): 2 Exercise Duration (min:sec): 10:[address] Depression (mm): Angina Score: Conroy Score: METS: 11.7 Resting HR: 84 Resting BP: 130 / 59 Peak HR: 165 Peak BP: 182 / 61 Max Predicted HR: 170 97 % Max Predicted HR Target HR: 145 Double Product: 25409 Stress Summary: BP Response: Reason for Termination: MAX EXERTION/TARGET HR Cardiac Symptoms: NO SYMPTOMS ECG Analysis Resting ECG: Stress ECG: Arrhythmia: Echo Analysis Resting Echo: Peak Echo Analysis: MEASUREMENTS (Male/Female) Normal Values CONCLUSIONS Patient underwent exercise stress echo with a Paramjit protocol treadmill stress test. Patient exercised into Stage 3 for a total of 10 minutes and 1 second reaching a total of 11.7 METS. Patient's maximum heart rate was 165 which represented 97% age- predicted maximum heart rate. Stress EKG portion: At baseline patient's EKG showed normal sinus rhythm, normal axis, T-wave inversion in lead 3, no significant ST or T wave abnormalities. At peak exercise, EKG showed no significant change from baseline. Stress echo portion: 2-D echocardiogram was performed in the parasternal long, personal short, apical 2 and apical four-chamber views at rest, peak exercise and in recovery. At baseline, echocardiogram showed left ventricular ejection fraction 55% without wall motion abnormalities. With peak exercise, echocardiogram shows improvement in left ventricular ejection fraction, increase contractility, decrease in left ventricular end systolic dimension without wall motion abnormalities consistent with a normal response to exercise. Conclusions: 1. Normal EKG and echo response to exercise without evidence of inducible ischemia. 2. Good exercise capacity. Dr. Nas Hernandez DO (Electronically Signed) Final Date: 28 April 2024 16:03
== END ==
LOC: RADNMMAIN 09:04
PROVIDERS: ATTEND Family Medicine
DX: R00.0 Tachycardia, unspecified (principal)
CPT/HCPCS: 93351

== ENCOUNTER → 2024-05-29 | Outpatient (CLI) | payer OTHER ==
--- NOTE | 2024-05-30 10:43 | BD ---
EXAMINATION TYPE: Axial Bone Density DATE OF EXAM: 05/29/2024 CLINICAL HISTORY: 48 years old Female. ICD-10 CODE: M810. AGE RELATED OSTEO , Additional History: Height: 63.5 in Weight: 187 lbs FRAX RISK QUESTIONS: Rheumatoid Arthritis: yes EXAM MEASUREMENTS: Bone mineral densitometry was performed using the [employer] System. Bone mineral density as measured about the Lumbar spine is: ----- L1-L4(G/cm2): 1.219 T Score Values are as follows: ----- L1: 0.1 ----- L2: -0.2 ----- L3: 0.2 ----- L4: 0.9 ----- L1-L4: 0.3 Z Score Values are as follows: ----- L1: -0.1 ----- L2: -0.4 ----- L3: -0.1 ----- L4: 0.7 ----- L1-L4: 0.1 Bone mineral density baseline Bone mineral density about the R hip (g/cm2): 1.213 Bone mineral density about the L hip (g/cm2): 1.200 T Score values are as follows: -----R Neck: 1.0 -----L Neck: 0.2 -----R Total: 1.6 -----L Total: 1.5 Z Score values are as follows: -----R Neck: 1.3 -----L Neck: 0.6 -----R Total: 1.6 -----L Total: 1.5 Bone mineral density baseline FRAX%s: The graph provided illustrates a 4.3% chance for a major osteoporotic fx and a 0.1% chance fo r the hips probability for fx in 10 years time. IMPRESSION: Normal (Values between +1 and -1 indicate normal bone mass). Consider repeating this study in 5 year s or sooner if there is some new clinical indication. NOTE: T-SCORE=SD OF THE YOUNG ADULT MEAN. [facility], Workstation: 3, 05/30/2024 10:41 AM
== END | disposition home or self-care (01) ==
LOC: RADBDWWP 15:31
PROVIDERS: ATTEND Internal Medicine Hematology & Oncology
DX: M81.0 Age-related osteoporosis without current pathological fracture (principal); M06.9 Rheumatoid arthritis, unspecified
CPT/HCPCS: 77080

== ENCOUNTER → 2024-10-11 | Outpatient (CLI) | payer OTHER ==
--- NOTE | 2024-10-11 09:10 | MM ---
Reason for Exam: Hx of breast cancer, conservation therapy. Patient History: Menarche at age 9. First Full-Term at age 20. Breast cancer, left, age 47. Previous chest radiation therapy at age 47. Previous chemotherapy at age 47. 10/18/2023, Malignant US biopsy breast VAD LT on the left side. Prior Study Comparison: 10/13/2023 Bilateral MG 3D diag mammo w/cad [facility], [facility]. 10/18/2023 Left MG diagnostic mammo LT wo CAD., [facility]. Tissue Density: The breasts are heterogeneously dense, which may obscure small masses. Findings: Analyzed By CAD. Status post changes of left-sided lumpectomy and radiation therapy. Left-sided skin thickening noted. No evidence for recurrent mass or suspicious microcalcifications. No right-sided breast mass seen. There are couple of benign punctate calcifications right breast. Overall Assessment: Benign, BI-RAD 2 Management: Diagnostic Mammogram of both breasts in 1 year. . Results were given to the patient verbally at the time of exam. Patient should continue monthly self-breast exams. A clinical breast exam by your physician is recommended on an annual basis. This exam should not preclude additional follow-up of suspicious palpable abnormalities. Note on Yashira scores and lifetime risk: 1. A Yashira score greater than 3% is considered moderate risk. If this is the case, consider specialist referral to assess eligibility for a risk reducing agent. 2. If overall lifetime risk for the development of breast cancer is 20% or higher, the patient may qualify for future screening with alternating mammogram and breast MRI. [facility], , 10/11/2024 9:07 AM. Electronically signed and approved by: Laureano Valencia M.D. Radiologis
== END | disposition home or self-care (01) ==
LOC: RADMAMWWP 08:26
PROVIDERS: ATTEND Radiology Radiation Oncology
DX: C50.512 Malignant neoplasm of lower-outer quadrant of left female breast (principal); R92.333 Mammographic heterogeneous density, bilateral breasts; R92.1 Mammographic calcification found on diagnostic imaging of breast; Z92.21 Personal history of antineoplastic chemotherapy; Z85.3 Personal history of malignant neoplasm of breast
CPT/HCPCS: 77062; 77066

== ENCOUNTER → 2025-02-06 | Outpatient (CLI) | payer OTHER ==
--- NOTE | 2025-02-07 22:37 | MR ---
EXAMINATION TYPE: MR cervical spine wo con DATE OF EXAM: 02/06/2025 5:55 PM COMPARISON: None. CLINICAL INDICATION: Female, 49 years old with history of M54.12 RADICULOPATHY, CERVICAL REGION; [facility], numbness legs and arms / headaches TECHNIQUE: Multi planar, multi sequence imaging was performed utilizing: T1-weighted, T2-weighted, an d turbo inversion recovery imaging of the cervical spine. IV Contrast: mL (None, if empty) FINDINGS: Alignment: The cervical vertebral bodies have preserved heights. Alignment is within normal limits gi octavio patient positioning. Bones: Multilevel disc space narrowing and osteophyte formation with facet and uncovertebral joint ar thropathy worse at C4, C5 and C6. high STIR signal within the C 3 vertebral body likely representing vertebral body hemangioma. Cord: The spinal cord is unremarkable with regards to their signal intensity and morphology. Discs: Intervertebral disc signal is maintained. C2-C3: No significant disc pathology. The spinal canal is patent. No neural foraminal stenosis. C3-C4: No significant disc pathology. The spinal canal is patent. Bilateral facet and uncovertebral joint arthropathy are present with mild left neural foraminal stenosis. The right neural foramen is p atent. C4-C5: No significant disc pathology. The spinal canal is patent. Bilateral facet and uncovertebral joint arthropathy are present with mild bilateral neural foraminal stenosis. C5-C6: No significant disc pathology. The spinal canal is patent. No neural foraminal stenosis. C6-C7: No significant disc pathology. The spinal canal is patent. No neural foraminal stenosis. C7-T1: No significant disc pathology. The spinal canal is patent. No neural foraminal stenosis. Other: None. IMPRESSION: 1. No evidence for disc herniation or significant spinal canal stenosis. 2. Mild disc degeneration with associated osteoarthritic changes. No evidence for significant neural foraminal stenosis. [facility], , 02/07/2025 10:34 PM
== END | disposition home or self-care (01) ==
LOC: RADMRIMAIN 17:16
PROVIDERS: ATTEND Physician Assistant Medical
DX: M50.10 Cervical disc disorder with radiculopathy, unspecified cervical region (principal)
CPT/HCPCS: 72141